=== PATIENT | male | born 1970 | race Caucasian/White ===

== ENCOUNTER 2023-05-06 06:04 | Observation (INO) ==
--- NOTE | 2023-04-15 09:12 | PAT Medication Instructions ---
Medication Instructions Date of Service April 15, 2023 Home Medications aspirin 81 mg tablet,delayed release 81 mg PO QAM cyanocobalamin (vitamin B-12) 2,500 mcg tablet 5,000 mcg PO QAM famotidine 20 mg tablet (Pepcid) 20 mg PO DAILY PRN insulin degludec 100 unit/mL (3 mL) subcutaneous pen (Tresiba FlexTouch U-100 insulin) 130 unit subcut HS lisinopril 10 mg tablet 10 mg PO QAM meloxicam 15 mg tablet 15 mg PO QAM pioglitazone 45 mg tablet 45 mg PO QAM sertraline 50 mg tablet 50 mg PO HS simvastatin 10 mg tablet (Zocor) 10 mg PO HS Continue as directed famotidine 20 mg tablet (Pepcid) 20 mg PO DAILY PRN(if needed) ASK your surgeon for instructions meloxicam 15 mg tablet 15 mg PO QAM ASK your prescriber and surgeon aspirin 81 mg tablet,delayed release 81 mg PO QAM DO NOT take the morning of surgery cyanocobalamin (vitamin B-12) 2,500 mcg tablet 5,000 mcg PO QAM lisinopril 10 mg tablet 10 mg PO QAM pioglitazone 45 mg tablet 45 mg PO QAM Take evening before surgery insulin degludec 100 unit/mL (3 mL) subcutaneous pen (Tresiba FlexTouch U-100 insulin) 130 unit subcut HS sertraline 50 mg tablet 50 mg PO HS simvastatin 10 mg tablet (Zocor) 10 mg PO HS Other Notes NOTHING TO EAT OR DRINK AFTER MIDNIGHT. If you have any questions please call us at [phone] or [phone] or [phone] or [phone]
--- NOTE | 2023-04-16 12:40 | Anesthesiology Consultation ---
Date of Service April 16, 2023 Assessment & Plan (1) Encounter for pre-operative examination: - Check BSG AM DOS - Infectious disease screening: Per assessment on 04/16/23: No known infectious disease contacts or current infectious disease symptoms. No noted recent Covid positive test. Chart Review Chart Review: Acceptable Risk for Surgery and Patient seen in Pre Admission Te sting Teaching & Discussion Pre-Anesthesia Teaching/Discussion Notes: Instructed NPO after midnight before surgery,except medications with 15 cc of water. Medication instructions provided according to the PAT guidelines. History Surgery Operation Date: 05/06/23 11:35 Proposed Procedures p Anterior Cervical Discectomy and Fusion C3-C4 with C5 Corpectomy Spinal Cord Monitoring - Tha Murdock, Height/Weight Height: 5 ft 8 in Weight: 112.9 kg Allergies Allergy/AdvReac Type Severity Reaction Status Date / Time No Known Allergies Allergy Verified 04/15/23 08:31 Medications Home Medications Medication Instructions Recorded Confirmed Last Taken aspirin 81 mg tablet,delayed 81 mg PO QAM 04/15/23 04/15/23 Unknown release cyanocobalamin (vitamin B-12) 5,000 mcg PO QAM 04/15/23 04/15/23 Unknown 2,500 mcg tablet famotidine 20 mg tablet (Pepcid) 20 mg PO DAILY PRN Acid Reflux 04/15/23 04/15/23 Unknown insulin degludec 100 unit/mL (3 130 unit subcut HS 04/15/23 04/15/23 Unknown mL) subcutaneous pen (Tresiba FlexTouch U-100 insulin) lisinopril 10 mg tablet 10 mg PO QAM 04/15/23 04/15/23 Unknown meloxicam 15 mg tablet 15 mg PO QAM 04/15/23 04/15/23 Unknown pioglitazone 45 mg tablet 45 mg PO QAM 04/15/23 04/15/23 Unknown sertraline 50 mg tablet 50 mg PO HS 04/15/23 04/15/23 Unknown simvastatin 10 mg tablet (Zocor) 10 mg PO HS 04/15/23 04/15/23 Unknown Past Medical History Medical History Spinal stenosis Arthritis Acid reflux Anxiety Depression Hypertension Hyperlipidemia Type 2 diabetes mellitus Exercise / Class Metabolic Activity II 4-5 Yardwork/Stairs/Walk up hill Past Family History Family History Mother Diabetes Father Diabetes Sister Diabetes Past Surgical History Surgical History History of anesthesia reaction some short term memory issues after thumb surgery (went into a store right after the surgery and didn't remember it) Hx of thumb surgery left History of tooth extraction Past Anesthesia History No Family Hx of Anesthesia Complications and Other (some short term memory issues after thumb surgery (went into a store right after the surgery and didn't remember it) ) History of PONV No Hx of PONV and No Hx of Motion Sickness Social History Smoking Status: Former smoker Do You Dip or Chew Tobacco: No (Hx, quit 2016) Smoking End Date: Quit 10 years ago Hx Alcohol Use: Yes alcohol intake frequency: holidays/special occasions only Hx Substance Use: No substance use type: does not use Review of Systems Patient denies chest pain, shortness of breath, dyspnea on exertion, fever, chills, cough, wheezing, palpitations. Physical Exam Vital Signs VITALS BP 123/80 P 62 TEMP 98.4 SP02 95%RA RESP 18 PHYSICAL Full cervical extension range of motion. Full TMJ range of motion. TMD 4 finger breaths Mallampati Score 2 Dentition: upper/lower dentures Lungs: clear throughout to auscultation Cardiac: regular rate and rhythm, no murmurs noted Spine: normal Carotid arteries: negative bruit Extremities: no LE edema Short, thick neck Lab Results Anesthesia Preop Results Results Anesthesia Widget: WBC 7.39 K/ul (4.8-10.8) 04/16/23 Hgb 12.9 g/dl (14.0-18.0) L 04/16/23 Hct 38.6 % (42.0-52.0) L 04/16/23 Plt 204 K/uL (130-400) 04/16/23 Na 141 mmol/L (136-145) 04/16/23 K 4.0 mmol/L (3.5-5.1) 04/16/23 Cl 108 mmol/L (98-107) H 04/16/23 CO2 28 mmol/L (21-32) 04/16/23 BUN 25 mg/dl (6-23) H 04/16/23 Creat 0.89 mg/dl (0.6-1.4) 04/16/23 Glucose Level 123 mg/dl (70-99(Fasting)) H 04/16/23 PT 11.5 Seconds (9.0-12.0) 04/16/23 PTT 27 Seconds (21-31) 04/16/23 INR 1.1 (0.9-1.1) 04/16/23 HA1c 6.5 % (4.5-5.6) H 04/16/23 Urine Color Yellow 04/16/23 Urine Appearance Clear (Clear) 04/16/23 Urine pH 6.0 (4.5-7.5) 04/16/23 Urine Specific [place] 1.032 (1.000-1.030) H 04/16/23 Urine Protein Negative (Negative) 04/16/23 Urine Glucose (UA) Negative (Negative) 04/16/23 Urine Ketones Negative (Negative) 04/16/23 Urine Blood Negative (Negative) 04/16/23 Urine Nitrite Negative (Negative) 04/16/23 Urine Bilirubin Negative (Negative) 04/16/23 Urine Urobilinogen Negative (Negative) 04/16/23 Urine Leukocyte Esterase Negative (Negative) 04/16/23 Blood Type O Positive 04/16/23 Antibody Screen NEGATIVE 04/16/23 Testing Electrocardiogram Date: 04/16/23 NSR at 61bpm. "Normal ECG" Chest X-Ray Date: 04/16/23 Findings: + NAD
[~2023-05-06 06:04] MED LIST: ACETAMINOPHEN 500 MG TAB PO SCH; CeleBREX 200 MG CAP PO SCH; GABAPENTIN 900 MG DOSE PO SCH; LR 15ML/HR IV SCH; LR 60ML/HR IV SCH; ceFAZolin 2000MG 2,000 MG/15 ML SYR IV SCH
[2023-05-06] MEDS ORDERED: ONDANSETRON INJ 2 MG/ML 2 ML VIAL IV PRN ×2 (07:06→11:57)
[2023-05-06] MEDS ORDERED: ePHEDrine sulfate 50 MG/ML AMP IV PRN (07:06)
[2023-05-06] MEDS ORDERED: ATROPINE SULFATE 0.1 MG/ML 10ML SYR IV PRN (07:06)
[2023-05-06] MEDS ORDERED: HYDROmorphone INJ 2 MG/ML SYR/VIAL IV PRN (07:06)
[2023-05-06] MEDS ORDERED: fentaNYL citrate PF 100 MCG/2 ML VIAL ONE ×2 (07:13→08:58)
[2023-05-06] MEDS ORDERED: MIDAZOLAM HCL 1 MG/ML 2ML VIAL ONE (07:14)
--- NOTE | 2023-05-06 07:25 | History & Physical Bridge Note ---
Date of Service May 06, 2023 History & Physical Bridge Note I have examined the patient, reviewed the History & Physical and in the interval since the performance of the History & Physical I have noted the following changes of clinical significance: no changes noted
--- NOTE | 2023-05-06 07:26 | History & Physical Report ---
Date of Service May 06, 2023 Assessment & Plan (1) Myelopathy concurrent with and due to spinal stenosis of cervical region: Plan: Anterior cervical discectomy and fusion C3-C4 with C5 corpectomy History of Present Illness Chief Complaint: Neck and arm pain Primary Care Provider: Cody Johansen MD This is a 52-year-old male who presents with chronic persistent neck and arm symptoms after failed course of nonoperative care is here for surgical invention. Allergies Allergy/AdvReac Type Severity Reaction Status Date / Time No Known Allergies Allergy Verified 05/06/23 06:20 Home Medications Medication Instructions Recorded Confirmed Type aspirin 81 mg tablet,delayed 81 mg PO QAM 04/15/23 05/06/23 History release cyanocobalamin (vitamin B-12) 5,000 mcg PO QAM 04/15/23 05/06/23 History 2,500 mcg tablet famotidine 20 mg tablet (Pepcid) 20 mg PO DAILY PRN Acid Reflux 04/15/23 05/06/23 History insulin degludec 100 unit/mL (3 130 unit subcut HS 04/15/23 05/06/23 History mL) subcutaneous pen (Tresiba FlexTouch U-100 insulin) lisinopril 10 mg tablet 10 mg PO QAM 04/15/23 05/06/23 History meloxicam 15 mg tablet 15 mg PO QAM 04/15/23 05/06/23 History pioglitazone 45 mg tablet 45 mg PO QAM 04/15/23 05/06/23 History sertraline 50 mg tablet 50 mg PO HS 04/15/23 05/06/23 History simvastatin 10 mg tablet (Zocor) 10 mg PO HS 04/15/23 05/06/23 History Past Med/Surg History Medical History Spinal stenosis Arthritis Acid reflux Anxiety Depression Hypertension Hyperlipidemia Type 2 diabetes mellitus Surgical History History of anesthesia reaction some short term memory issues after thumb surgery (went into a store right after the surgery and didn't remember it) Hx of thumb surgery left History of tooth extraction Family History Mother Diabetes Father Diabetes Sister Diabetes Social History (Reviewed 05/06/23 @ 06:20 by JORDANA Parisi Smoking Status: Former smoker Smoking End Date: Quit 10 years ago; Second Hand Exposure: No; Do You Dip or Chew Tobacco: No (Hx, quit 2017); Tobacco Cessation Education Requested by Patient: No Hx Alcohol Use: Yes Hx Substance Use: No Preferred Language: Zambian Communication Ability: Effective Station Supervisor Required: No Beliefs That Will Affect Care: None Current Living Situation: Spouse Other Information That Helps Us Care for You: No Feels Safe at Home: Yes Safety Concerns: Feels Safe At This Time Assistive Devices: Denture - Upper, Denture - Lower and Glasses Physical Exam Physical Exam: Patient is alert and oriented Heart regular rhythm Lungs clear Results & Data Results & Data Vital Signs (Past 12 Hours) Vital Signs Temp Pulse Resp BP Pulse Ox O2 Del Method 05/06/23 06:16 36.8 C 64 20 163/95 H 97 Room Air
[2023-05-06] MEDS ORDERED: LIDOCAINE 2% 2 ML VIAL/AMP(20MG/ML) INFIL ONE (07:27)
[2023-05-06] MEDS ORDERED: ONDANSETRON INJ 2 MG/ML 2 ML VIAL ONE (07:27)
[2023-05-06] MEDS ORDERED: PROPOFOL IV EMULSION 10 MG/ML 20 ML VIAL IV ONE (07:27)
[2023-05-06] MEDS ORDERED: ROCURONIUM BROMIDE 10 MG/ML 5 ML VIAL IV ONE (07:27)
[2023-05-06] MEDS ORDERED: DEXAMETHASONE SOD INJ 4 MG/ML VIAL ONE ×2 (07:27→09:52)
[2023-05-06] MEDS ORDERED: DEXTROSE 50% 50 ML SYRINGE IV ONE (07:33)
[2023-05-06] MEDS ORDERED: ceFAZolin 330 MG/ML 1 GM VIAL ONE (07:46)
[2023-05-06] MEDS ORDERED: FLOSEAL HEMOSTATIC MATRIX 10ML TOP ONE (08:31)
[2023-05-06] MEDS ORDERED: ceFAZolin 1000MG 1,000 MG/7.5 ML SYR IV STA (08:36)
[2023-05-06] MEDS ORDERED: diphenhydrAMINE 50 MG/ML VIAL ONE (08:45)
[2023-05-06] MEDS ORDERED: GLYCOPYRROLATE 0.2 MG/ML VIAL ONE (08:45)
[2023-05-06] MEDS ORDERED: SUGAMMADEX SODIUM 200 MG/2 ML VIAL IV ONE (08:56)
[2023-05-06] MEDS ORDERED: PHENYLEPHRINE 100MCG/ML 10ML SYR IV ONE (09:53)
--- NOTE | 2023-05-06 10:04 | Operative Report ---
Post Operative Report Pre & Post Diagnosis Operation Date: 05/06/23 07:45 Pre-Op Diagnosis: Stenosis of Cervical Spine with Myelopathy Post-Op Diagnosis: Stenosis of Cervical Spine with Myelopathy I identified the patient and participated in the time-out.: Yes Procedure Operation Date: 05/06/23 07:45 Actual Procedures #1 anterior cervical corpectomy of C5 with bilateral foraminotomies. #2 anterior cervical discectomy C3-C4 with bilateral foraminotomies. #3 anterior cervical arthrodesis C3-C4 and C4-C6. #4 placement of peek 7 mm cage at C3-C4 and 23 mm cage at C4-C6. #5 placement locally harvested morselized autograft combined with I factor in the interbody cages. #6 application of K2 M plate and screws from C3-C6 Surgeon Tha Murdock, Secretarial Stenographer None Estimated Blood Loss 10 Findings See Below The patient is 5 foot 8 weighing over 112 kg with a BMI in excess of 37. Patient's body habitus did contribute to significant difficulty with positioning exposure adding at least 50% increased operative time. Specimens None Indications This is a 52-year-old male who presents with gross cervical myelopathy and is here for surgical invention. Description of Procedure Patient was met with identified informed consent obtained. Patient was then taken to the operative suite underwent patient placed supine position on the Chad table head Reza faculty head. All bony promises well-padded eyes inspected to ensure no external pressure placed upon the. This point the anterior cervical spine was prepped prepped and draped normal sterile fashion. With the assistance of fluoroscopy identified the C4 vertebral body transverse incision was placed along the right anterior aspect of the cervical spine overlying the region. Blunt dissection with assistance of bipolar electrocautery was performed down to expose the anterior cervical spine from C3- C6. I then performed a complete discectomy of C4-C5 to the uncovertebral notch bilaterally followed by C5-C6. Sidell distraction pins were then placed in C4 and C6 to distract across the C5 vertebral body. A complete corpectomy was then performed, removal of all posterior annular fibers longitudinal ligament bilateral foraminotomies were performed. Endplates were then burred to subcort ical bleeding bone at 23 mm peek cage filled locally harvested morselized autograft and I factor tapped in position. Then proceeded at C3-C4 and again complete discectomy performedbilaterally. Sidell distraction pins again utilized. Removed all posterior annular fibers longitudinal ligament bilateral foraminotomies performed for complete decompression. Endplates were then burred to subcortical and bone and 7 mm peek cage filled with I factor and locally harvested morselized autograft tapped in position. Distracting apparatus was removed and all anterior osteophytes. To a smooth cortical surface and a K2 M plate and screws applied with the assistance of fluoroscopy. Incision was then copiously irrigated explored to ensure no damage to surrounding structures remaining bleeding. 10 round DINA drain inserted. The incision was then closed with 2 Vicryl in the fascia and 4 Monocryl for fascial closure. Steri-Strips sterile dressing placed. Patient was then taken to PACU in stable condition. Please note spinal cord monitoring visualized at the procedure no changes noted. I attest to the content of the Intraoperative Record and any orders documented therein. Any exceptions are noted below.
--- NOTE | 2023-05-06 10:18 | Fluoroscopy Report ---
FL cervical 2-3V CLINICAL HISTORY: ACDF C3-C4 WITH C5 CORPECTOMY COMPARISON STUDY: None FLUOROSCOPY TIME: 15.1 seconds FLUOROSCOPY IMAGES: 2 EXPOSURE DOSE: 2.63 mGy FINDINGS: 4 level anterior plate and screw fusion hardware noted at what appears to be the C3-C6 leve ls with reported C5 corpectomy. Discectomy changes are noted at the C3-C4 level. The hardware appears intact. Endotracheal tube is present with surgical drainage catheter. Note that the images were subm itted following completion of the surgery. IMPRESSION: Fluoroscopic assistance as above. ACT 112: Negative or not required by law. Electronically signed by: Jhon Celeste M.D. 05/06/2023 10:16 AM
[2023-05-06] MEDS: fentaNYL citrate PF 100 MCG/2 ML VIAL IV PRN ×2 (10:30→10:43)
--- NOTE | 2023-05-06 11:35 | Anesthesiology Progress Note ---
Date of Service May 06, 2023 Anesthesia Post Procedure Vital Signs Vital Signs: Temp Pulse Pulse Resp BP Pulse Ox O2 Del Method 05/06/23 11:20 37.0 C 77 14 133/90 93 Nasal Cannula 05/06/23 11:10 71 12 115/78 92 Oxymask 05/06/23 11:00 73 16 126/84 93 Oxymask 05/06/23 10:50 72 12 134/86 93 Oxymask 05/06/23 10:40 80 20 152/101 H 93 Oxymask 05/06/23 10:30 71 17 133/93 94 Oxymask 05/06/23 10:25 83 20 133/96 96 Oxymask 05/06/23 10:19 36.0 C L 80 16 142/99 H 96 Oxymask 05/06/23 06:16 36.8 C 64 20 163/95 H 97 Room Air O2 Flow Rate 05/06/23 11:20 3 05/06/23 11:10 4 05/06/23 11:00 4 05/06/23 10:50 6 05/06/23 10:40 6 05/06/23 10:30 6 05/06/23 10:25 6 05/06/23 10:19 6 05/06/23 06:16 Pain Intensity Lower Neck: Pain Intensity: 5 Transfer of Care Handoff Completed per policy Notes Mental Status: alert / awake / arousable and participated in evaluation Patient Amnestic to Procedure: Yes Nausea / Vomiting: adequately controlled Pain: adequately controlled Airway Patency, RR, SpO2: stable & adequate BP & HR: stable & adequate Hydration State: stable & adequate Anesthetic Complications: no major complications apparent and Pt Satisfied with anesthetic care
[2023-05-06] MEDS ORDERED: dexAMETHasone 8 MG in SYRINGE 0 ML IV PRN (11:57)
[2023-05-06] MEDS ORDERED: SOD PHOSPHATE/SOD BIPHOSPHATE ENEMA 132 ML BTL PR PRN (11:57)
[2023-05-06] MEDS ORDERED: RACEPINEPHRINE 2.25% NEBU SOLN 0.5 ML VIAL INH PRN (11:57)
[2023-05-06] MEDS ORDERED: PHARMACY GLYCEMIC MGMT CONSULT PRN (11:57)
[2023-05-06] MEDS ORDERED: hydrOXYzine HCl 25 MG TAB PO PRN (11:57)
[2023-05-06] MEDS ORDERED: METOCLOPRAMIDE HCL INJ 5 MG/ML 2 ML VIAL IV PRN (11:57)
[2023-05-06] MEDS ORDERED: LORazepam 0.5 MG TAB PO PRN (11:57)
[2023-05-06] MEDS ORDERED: ACETAMINOPHEN 500 MG TAB PO PRN (11:57)
[2023-05-06] MEDS ORDERED: bisacodyL 10 MG SUPP PR PRN (11:57)
[2023-05-06] MEDS ORDERED: NALOXONE HCL 0.4 MG/1 ML VIAL/CARP IV PRN (11:57)
[2023-05-06] MEDS ORDERED: LORazepam 0.5 MG in SYRINGE 0.25 ML IV PRN (11:57)
[2023-05-06] MEDS ORDERED: ACETAMINOPHEN 1,000 MG/100 ML VIAL IV PRN (11:57)
[2023-05-06] MEDS ORDERED: diphenhydrAMINE Capsule 25 MG CAP PO PRN (11:57)
[2023-05-06] MEDS ORDERED: HYDROmorphone INJ 0.5 MG/0.5 ML SYR IV PRN (11:57)
[2023-05-06] MEDS ORDERED: PROMETHAZINE HCL 12.5 MG in SODIUM CHLORIDE 0.9% 50 ML IV PRN (11:57)
[2023-05-06] MEDS ORDERED: ONDANSETRON 4 MG OD TAB PO PRN (11:57)
[2023-05-06] MEDS ORDERED: MAGNESIUM HYDROXIDE SUSP 30 ML UDC PO PRN (11:57)
[2023-05-06] MEDS ORDERED: DO NOT ADMINISTER FLU VACCINE PRN (11:57)
[2023-05-06] MEDS ORDERED: DO NOT ADMINISTER PNEUMOCOCCAL VACCINE PRN (11:57)
[2023-05-06] MEDS ORDERED: FAMOTIDINE 20 MG TAB PO PRN ×2 (11:57)
[2023-05-06] MEDS ORDERED: traMADol HCL 50 MG TABLET PO PRN (11:57)
[2023-05-06] MEDS ORDERED: HYDROmorphone INJ 1 MG/ML SYRINGE IV PRN (11:57)
[2023-05-06] MEDS ORDERED: ALUMINUM/MAGNESIUM SUSP 30 ML UDC PO PRN (11:57)
[2023-05-06] MEDS: SODIUM CHLORIDE 0.9% 1,000 ML IV SCH ×3 (12:46→23:10)
--- NOTE | 2023-05-06 12:52 | Hospitalist Consultation ---
Date of Consultation May 06, 2023 Assessment & Plan (1) Myelopathy concurrent with and due to spinal stenosis of cervical region: - Postop day #0, C3/C4 discectomy and fusion, C5 corpectomy by Dr. Murdock - Pain management, bowel regimen and DVT ppx per the primary team - PT/OT consults - Follow am CBC to monitor for acute blood loss, last Hgb was 12.9 on 04/16/23, trend am labs (2) Type 2 diabetes mellitus: - Cont on pioglitazone 45 mg QAM per primary team - ISS with accucheckrobert achs - Taking Tresiba 130 units at HS -- primary team has consulted glycemic pharmacy, last evening took 97 units due to being n.p.o. at midnight per fianc sitting at bedside, glucose this morning was 80. Monitor. Consider reduce Tresiba this evening again pending glucoses this afternoon and oral intake. -A1c 6.5 on 04/16/2023 (3) Hyperlipidemia: - Cont simvastatin - Chronic, stable (4) Hypertension: -Chronic, stable, BP 149/93 presently, monitor. - Connt Antihypertensives with lisinopril - baby aspirin - can discuss with PCP after discharge if pt should continue this medication or not as te started it for possible stroke sx with numbness/right hand weakness which is why he has underwent cervical surgery, likely that this can be discontinued. (5) Acid reflux: - Chronic, stable continue famotidine as needed (6) Anxiety: (7) Depression: -Chronic, stable continue on sertraline 50 mg at bedtime DVT ppx: teds, scds GI/FEN: DM diet Lines: 2 PIV CODE: Full code- discussed with pt and family present at bedside Dispo: From home, likely to remain in the hospital x 1-2 days Thank you for involving us in the care of Mr. Pickens. If you have any questions or concerns please do not hesitate to call. At this time medicine will sign off. Supervising Physician Co-Signing Physician Notes I have seen and discussed the case with the collaborating LYNN. I agree with the above H&P. I have reviewed and confirmed the patients medical history, the findings on physical examination, and the patients diagnosis and treatment plan with Lory BAILEY and agree with the information documented. In short, Mr. Pickens is a 52 year old gentleman with DMT2, HTN, HLD who is admitted for postop day #0, C3/C4 discectomy and fusion, C5 corpectomy by Dr. Murdock. Medicine consulted for co management. Plan for glycemic consult, resume home medications, monitor for post-op anemia. Rest of plan as above History of Present Illness Reason for Consultation: Post op med management Requesting Physician: Dr. Murdock Attending Physician: Tha Murdock, DO History of Present Illness This is a 52 yo M with PMHx of DM II, GERD, HTN, HLD, Depression, Anxiety, myelopathy, spinal stenosis of cervical region who presented for anterior cervical discectomy and fusion C3 with C3-4 and C[address] Murdock on 05/06/2023. Patient is present with his fiance, sister, daughter, and friend present at bedside. He reports that he is still slightly sleep from surgical procedure. He reports having some right arm numbness and pain which is similar to before his surgical procedure. He has tolerated clear liquids without any difficulty. Patient reports last bowel movement was yesterday. Typically he does not use any supplemental O2 but it is placed after surgery on 2 LPM NC. Denies any shortness of breath, chest pain. He has some mild pain in his neck but intermittently is falling asleep. Appears to be comfortable. Eric notes that she doses his Tresiba at home, last evening gave 97 units due to being n.p.o. at midnight. His sugar this morning was 79. Normally he takes 130 units at bedtime. She also notes that he is on a baby aspirin as initially when his symptoms started there was concern that he had a stroke versus nerve impingement in the neck. To her knowledge there is no proven indication that he had a stroke. Discussed that she can follow-up with his PCP regarding if he should remain on baby aspirin. Allergies Allergy/AdvReac Type Severity Reaction Status Date / Time No Known Allergies Allergy Verified 05/06/23 06:20 Home Medications Medication Instructions Recorded Confirmed Type aspirin 81 mg tablet,delayed 81 mg PO QAM 04/15/23 05/06/23 History release cyanocobalamin (vitamin B-12) 5,000 mcg PO QAM 04/15/23 05/06/23 History 2,500 mcg tablet famotidine 20 mg tablet (Pepcid) 20 mg PO DAILY PRN Acid Reflux 04/15/23 05/06/23 History insulin degludec 100 unit/mL (3 130 unit subcut HS 04/15/23 05/06/23 History mL) subcutaneous pen (Tresiba FlexTouch U-100 insulin) lisinopril 10 mg tablet 10 mg PO QAM 04/15/23 05/06/23 History meloxicam 15 mg tablet 15 mg PO QAM 04/15/23 05/06/23 History pioglitazone 45 mg tablet 45 mg PO QAM 04/15/23 05/06/23 History sertraline 50 mg tablet 50 mg PO HS 04/15/23 05/06/23 History simvastatin 10 mg tablet (Zocor) 10 mg PO HS 04/15/23 05/06/23 History oxycodone 5 mg tablet 5 mg PO Q6H PRN pain #30 tabs 05/06/23 05/06/23 Rx tramadol 50 mg tablet 50 mg PO Q6H PRN pain, moderate #2 05/06/23 05/06/23 Rx tabs Patient History Medical History (Updated 05/06/23 @ 12:56 by Jael Henley PA-C) Anxiety Type 2 diabetes mellitus Spinal stenosis Arthritis Acid reflux Depression Hypertension Hyperlipidemia Surgical History History of anesthesia reaction some short term memory issues after thumb surgery (went into a store right after the surgery and didn't remember it) Hx of thumb surgery left History of tooth extraction Family History Mother Diabetes Father Diabetes Sister Diabetes Social History Smoking Status: Former smoker Smoking End Date: Quit 10 years ago; Second Hand Exposure: No; Do You Dip or Chew Tobacco: No (Hx, quit 2017); Tobacco Cessation Education Requested by Patient: No Hx Alcohol Use: Yes Hx Substance Use: No Preferred Language: Gambian Communication Ability: Effective Affiliate Marketing Specialist Required: No Beliefs That Will Affect Care: None Current Living Situation: Spouse Other Information That Helps Us Care for You: No Feels Safe at Home: Yes Safety Concerns: Feels Safe At This Time Assistive Devices: Denture - Upper, Denture - Lower and Glasses Review of Systems Review of Systems: Constitutional: No fever, sweats or chills Eyes: No diplopia, no worsening or blurred vision ENT: normal hearing, no trouble swallowing, + mild neck pain as per HPI Respiratory: No cough, sputum, dyspnea at rest or on exertion Cardiovascular: No chest pain, tightness or palpitations Abdomen: No pain, nausea, vomiting, diarrhea or constipation, last bowel movement yesterday Musculoskeletal: No joint pain, calf pain, swelling Neurologic: No weakness, numbness/tingling, or balance problems Psychiatric: No anxiety or depression Skin: No rash or itch Physical Exam Physical Exam: General: awake, alert, no apparent distress, obese with BMI 37.7, white male Head: Normocephalic, atraumatic ENT: PERRL, EOMI, no pharyngeal exudate, mucous membranes moist, neck dressing is C/D/I, DINA drain in place serosanguineous bloody outs Chest: Clear to auscultation, on room air, no adventitious breath sounds Cardiac: Regular rate and rhythm, no murmur, no JVD, normal peripheral pulses, good capillary refill Abdominal: NABS x 4 quadrants, soft, nondistended, nontender to palpation, no rebound or guarding Extremities: Normal inspection, no peripheral edema or erythema, calfs nontender to palpation, + numbness of the right upper extremity, sensation to light touch is intact, patient can move all extremity without difficulty. Psych: Normal mood and affect Neuro: AAO x 3, strength intact bilaterally and rated 5/5, no motor deficits, sp eech is clear Results & Data Results & Data Vital Signs (Past 12 Hours) Vital Signs Temp Pulse Pulse Pulse Resp BP Pulse Ox 05/06/23 12:16 36.7 C 79 18 146/90 H 94 05/06/23 12:11 79 17 95 05/06/23 11:48 36.6 C 80 18 146/89 H 93 05/06/23 11:30 74 15 129/88 93 05/06/23 11:20 37.0 C 77 14 133/90 93 05/06/23 11:10 71 12 115/78 92 05/06/23 11:00 73 16 126/84 93 05/06/23 10:50 72 12 134/86 93 05/06/23 10:40 80 20 152/101 H 93 05/06/23 10:30 71 17 133/93 94 05/06/23 10:25 83 20 133/96 96 05/06/23 10:19 36.0 C L 80 16 142/99 H 96 05/06/23 06:16 36.8 C 64 20 163/95 H 97 O2 Del Method O2 Flow Rate 05/06/23 12:16 Nasal Cannula 2 05/06/23 12:11 Nasal Cannula 2 05/06/23 11:48 Nasal Cannula 3 05/06/23 11:30 Nasal Cannula 3 05/06/23 11:20 Nasal Cannula 3 05/06/23 11:10 Oxymask 4 05/06/23 11:00 Oxymask 4 05/06/23 10:50 Oxymask 6 05/06/23 10:40 Oxymask 6 05/06/23 10:30 Oxymask 6 05/06/23 10:25 Oxymask 6 05/06/23 10:19 Oxymask 6 05/06/23 06:16 Room Air Laboratory Results 05/06/23 05/06/23 05/06/23 11:58 10:21 06:21 POC Glucose 115 H 96 76 Diagnostic Findings Cervical Spine X-Ray 05/06/23 07:45 FL cervical 2-3V CLINICAL HISTORY: ACDF C3-C4 WITH C5 CORPECTOMY COMPARISON STUDY: None FLUOROSCOPY TIME: 15.1 seconds FLUOROSCOPY IMAGES: 2 EXPOSURE DOSE: 2.63 mGy FINDINGS: 4 level anterior plate and screw fusion hardware noted at what appears to be the C3-C6 levels with reported C5 corpectomy. Discectomy changes are noted at the C3-C4 level. The hardware appears intact. Endotracheal tube is present with surgical drainage catheter. Note that the images were submitted following completion of the surgery. IMPRESSION: Fluoroscopic assistance as above. ACT 112: Negative or not required by law. Electronically signed by: Jhon Celeste M.D. 05/06/2023 10:16 AM
[2023-05-06] MEDS ORDERED: LANTUS PER UNIT CHARGE SC ONE ×2 (13:15→21:00)
[2023-05-06] MEDS ORDERED: CARBOHYDRATES FOR HYPOGLYCEMIA PO PRN (13:15)
[2023-05-06] MEDS ORDERED: GLUCOSE 40% GEL 15 GM TUBE PO PRN (13:15)
[2023-05-06] MEDS ORDERED: GLUCOSE 10 TAB/TUBE PO PRN (13:15)
[2023-05-06] MEDS ORDERED: DEXTROSE 50% 50 ML SYRINGE IV PRN (13:15)
[2023-05-06] MEDS ORDERED: GLUCAGON FOR INJ 1 MG VIAL IM PRN (13:15)
[2023-05-06] MEDS: INSULIN ASPART PER UNIT CHARGE SC SCH ×3 (13:57→20:57)
--- NOTE | 2023-05-06 14:03 | Pharmacy Report ---
Pharmacy Glycemic Short Note 2 - Date of Service May 06, 2023 - Glycemic Short BSG Results (Last 24 hours): 05/06/23 05/06/23 05/06/23 06:21 10:21 11:58 POC Glucose 76 96 115 H 05/06/23 13:38 POC Glucose 123 H OUTPATIENT ANTIDIABETIC REGIMEN: * Tresiba (prescribed 130 units SC HS, but doesn't take if BSG below 120 and takes about half if above 130 mg/dL) * Reportedly took 95 units SC last evening * Pioglitazone 45 mg PO qAM HbA1c: 6.5% (04/26/23) ASSESSMENT: * RM is a 52 year old male POD #0 s/p discectomy/fusion * Received 4 mg IV dexamethasone in OR and is ordered 6 mg IV q8h x 3 doses * Preop BSG of 76 mg/dL and postop BSG of 115 mg/dL * Will utilize aggressive weight-based Novolog parameters * Given large range in reported outpatient basal, will be conservative with initial dose and allow for more this evening if needed PLAN FOR INPATIENT GLYCEMIC CONTROL: * Hold outpatient oral diabetes medications * Basal insulin * Lantus 40 units SC x 1 postoperatively * Lantus HS 0-40 units SC HS * Bolus insulin * NovoLog per scale ACHS or Q6hrs while NPO * Goal Range: Low 110 mg/dL - High 140 mg/dL * Correction Factor: 15 mg/dL/unit * Nutritional / Prandial insulin per carb ratio of 1 unit per 5 grams CHO consumed * ,04 checks with same parameters
[2023-05-06] MEDS: dexAMETHasone 6 MG in SYRINGE 0 ML IV SCH ×2 (14:36→21:51)
[2023-05-06] MEDS: oxyCODONE HCL IR 5 MG TAB (IMMEDIATE RELEASE) PO PRN ×2 (14:38→23:48)
[2023-05-06] MEDS ORDERED: COUGH DROP (SUGAR FREE) LOZ 24 LOZ/1 BOX BUCCAL PRN (19:26)
[2023-05-06] MEDS ORDERED: DOCUSATE SODIUM/SENNA 50/8.6MG TAB PO SCH (21:00)
[2023-05-06] MEDS ORDERED: SERTRALINE HCL 50 MG TABLET PO SCH (21:00)
[2023-05-06] MEDS ORDERED: SIMVASTATIN 10 MG TAB PO SCH (21:00)
[2023-05-07] MEDS: INSULIN ASPART PER UNIT CHARGE SC SCH ×4 (00:17→12:00)
[2023-05-07] MEDS: POLYETHYLENE (MIRALAX) 17 GM PACK PO SCH ×2 (05:28→11:43)
[2023-05-07] MEDS: dexAMETHasone 6 MG in SYRINGE 0 ML IV SCH (05:28)
[2023-05-07] MEDS ORDERED: ASPIRIN 81 MG ECTAB PO SCH (09:00)
[2023-05-07] MEDS ORDERED: NON-FORMULARY MEDICATION (Pioglitazone 45 mg Tablet) PO SCH (09:00)
[2023-05-07] MEDS ORDERED: lisinopril 10 MG TAB PO SCH (09:00)
[2023-05-07] MEDS ORDERED: CYANOCOBALAMIN (B-12) 2,500 MCG TABLET PO SCH (09:00)
[2023-05-07] MEDS ORDERED: LANTUS PER UNIT CHARGE SC SCH (09:00)
--- NOTE | 2023-05-07 09:57 | Orthopedic Progress Note ---
Date of Service May 07, 2023 Assessment & Plan (1) Myelopathy concurrent with and due to spinal stenosis of cervical region: Plan: This time the patient's DINA drain is decreasing appropriately. We are discussing discharge home today. He will require a hospital bed at home. This would allow him to sit upright to protect his airway after his large cervical reconstruction. Also allow him to adequately wear his cervical collar in appropriate position. Admission and Anticipated Discharge Date Admission Date: May 06, 2023 Subjective Patient swallowing well. No hoarseness. He is noting improvement in the tingling in his arms. He still notes weakness to the right shoulder. No radicular pain. Physical Exam Physical Exam: Patient has good grasp bilaterally. There are some deficits to the right deltoid compared to the left. Sensory is intact. Results & Data Vital Signs (Past 12 Hours) Vital Signs Temp Pulse Resp BP Pulse Ox O2 Del Method O2 Flow Rate 05/07/23 09:12 36.5 C 84 18 162/92 H 92 Nasal Cannula 1 05/07/23 07:06 36.7 C 80 18 165/100 H 93 Nasal Cannula 1 05/07/23 05:57 85 18 95 Nasal Cannula 2 05/07/23 05:19 36.6 C 72 20 136/74 94 Nasal Cannula 3 05/07/23 03:15 36.7 C 78 18 146/76 H 93 Nasal Cannula 3 05/07/23 02:41 70 18 92 Nasal Cannula 2 05/07/23 01:24 36.4 C L 75 18 149/84 H 95 Nasal Cannula 3 05/06/23 23:41 36.6 C 80 16 134/83 94 Nasal Cannula 3 05/06/23 22:23 81 18 94 Nasal Cannula 2
--- NOTE | 2023-05-07 09:58 | Discharge Summary ---
Date of Service May 07, 2023 Admission HPI Per Admitting Provider This is a 52-year-old male who presents with chronic persistent neck and arm symptoms after failed course of nonoperative care is here for surgical invention. Principal Diagnosis Cervical spinal stenosis with myelopathy Discharge Data Allergies Allergy/AdvReac Type Severity Reaction Status Date / Time No Known Allergies Allergy Verified 05/06/23 06:20 Consultations 05/06/23 11:57 Consult Hospitalist Routine Procedures Performed Operation Date: 05/06/23 07:45 Actual Procedures p Anterior Cervical Discectomy and Fusion C3-C4 with C5 Corpectomy Spinal Cord Monitoring(Not Applicable) - Tha Murdock DO Ordered Studies 05/06/23 07:45 FL cervical 2-3V Routine Hospital Course (1) Myelopathy concurrent with and due to spinal stenosis of cervical region: Patient went anterior cervical corpectomy ACDF and fusion trial as well as taken orthopedic for postoperative postop day 1 and swallowing well. No hoarseness. No radicular pain. DINA drain decreasing probably. Subsequently we are planning for discharge home subsequently planning for discharge home. Discharge orders instructions found in chart for further review. Total Time Total Time Spent Total Time Spent (In Minutes): 20 minutes Discharge Plan Discharge Items Patient Disposition: Home - Home Health Services Reason For Visit: postop Discharge Diagnosis: Cervical spinal stenosis with myelopathy Activity: As commented below Non-emergency contact: Primary Care Provider Call non-emergency contact if: you have any medication questions Follow-up/Referrals: PCP,NO [Physician] - Diet: Regular Addtl Attending Provider Instructions: ACTIVITY RECOMMENDATIONS: SELF CARE INSTRUCTIONS AFTER CERVICAL FUSIONS 1. No smoking. Smoking drastically decreases the chance of a solid fusion. 2. No bending, lifting more than 5 pounds, or twisting (roll like a log when turning in bed). 3. You may shower 3 days after surgery. Thoroughly dry wound. Do not soak in the tub. 4. Cervical collar: Must be worn at all times including sleeping. You may remove the brace only to bath, eat and if you are sitting in a recliner. 5. Please walk as much as you can for exercise. Gradually increase the distance that you walk as your endurance increases. SPECIAL CARE INSTRUCTIONS: VERY IMPORTANT TO READ AND REVIEW A. Do not take any anti-inflammatory medications (i.e. Indocin, Advil, Aspirin, Naprosyn, Aleve, Motrin, etc.) as these may inhibit the chance of a solid fusion. Tylenol is okay to take. B. Your surgical incision has been closed with a cosmetic suture under the skin that will dissolve in about 6 weeks. In 14 days, you can use a pair of clean scissors and cut the suture that is left outside of the skin at the ends of your incision. C. Complications are uncommon, but please contact us if you have any signs or symptoms of: 1. wound infection (fever higher than 102.5 degrees F, redness, separation of wound, drainage, or increasing pain from the incision) 2. blood clots in legs (pain, swelling, redness and warmth in legs) 3. urinary tract infection (fever higher than 102.5 degrees, burning upon urination or increased frequency of urination) 4. nerve problems (inability to walk on your toes or heels, numbness, loss of bowel or bladder control) 5. any other symptoms that concern you. D. Please call the office at if you have any concerns or questions about your operation or recovery. MANAGING PAIN AFTER SPINAL SURGERY 1. Narcotic medication is intended for short-term use and will be provided for surgical pain. Surgical pain usually lasts for a period of 4-6 weeks. Narcotic medication includes Percocet, Vicodin, Darvocet, Tylenol #3 or Lortab. 2. Longer-term pain is more appropriately treated with non-narcotic medication such as Tylenol ES. 3. Muscle spasm is not appropriately treated with narcotics. Muscle relaxers such as Soma, Flexeril or Skelaxin can be used along with Tylenol ES. 4. Remember that we all live with some "aches and pains". This is not unusual or uncommon after an injury or as we get older. 5. We will provide appropriate medication within the normal guidelines of their prescribed use. We will also be very cautious and aware of potential abuse and extended duration of patients' medication needs. 6. Please allow 2-3 days to process refills. Prescriptions will not be mailed but must be picked up at the office. FOLLOW UP VISIT: Keep your scheduled follow-up appointment. Any questions, please call the office at . Pending Studies at Discharge: No Stand-Alone Forms: [employer], Smoking Cessation Medications and DC Order Prescriptions: New tramadol 50 mg tablet 50 mg PO Q6H PRN (Reason: pain, moderate) Qty: 2 0RF oxycodone 5 mg tablet 5 mg PO Q6H PRN (Reason: pain) Qty: 30 0RF Continued meloxicam 15 mg Tablet 15 mg PO QAM simvastatin [Zocor] 10 mg Tablet 10 mg PO HS pioglitazone 45 mg Tablet 45 mg PO QAM aspirin 81 mg Tablet,Delayed Release (Dr/Ec) 81 mg PO QAM lisinopril 10 mg Tablet 10 mg PO QAM sertraline 50 mg Tablet 50 mg PO HS insulin degludec [Tresiba FlexTouch U-100] 100 unit/mL (3 mL) Insulin Pen 130 unit SUBCUT HS Patient Comments: prescribed 130 at hs, but pt monitors sugars and if 120 or less, does not take, if above 130, does about half the dose "approx", per pt, PCP is aware and okay with this due to A1c is coming down. cyanocobalamin (vitamin B-12) 2,500 mcg Tablet 5,000 mcg PO QAM famotidine [Pepcid] 20 mg Tablet 20 mg PO DAILY PRN (Reason: Acid Reflux) Admission Data Admit Date/Time: 05/06/23 10:08 Attending Provider: Tha Murdock Admit Provider: Tha Murdock Primary Care Provider: Cody Johansen. Other Providers: Cyndi Murillo; Jerilyn York
[2023-05-07 11:21] LABS: Hematocrit (blood only) 40.9 % (42.0-52.0); Hemoglobin 13.6 g/dl (14.0-18.0); Mean Corpuscular Hemoglobin 31.1 pg (25.0-34.0); Mean Corpuscular Hgb Conc 33.3 g/dL (32.0-36.0); Mean Corpuscular Volume 93.6 fL (80.0-100.0); Mean Platelet Volume 11.4 fL (9.4-12.4); Platelet Count 242 K/uL (130-400); RDW Coefficient of Variation 12.7 % (11.5-14.5); RDW Standard Deviation 43.7 fL (36.4-46.3); Red Blood Count 4.37 M/uL (4.70-6.10); White Blood Count 18.32 K/ul (4.8-10.8)
[2023-05-07 11:31] LABS: BUN Creatinine Ratio 17.6 (10-20); Calcium 9.6 mg/dl (8.6-10.3); Est GFR (African American) 122.9 ml/min; Est GFR (Non-African American) 106.1 ml/min; Magnesium 1.9 mg/dl (1.7-2.4); Phosphorus 2.3 mg/dl (2.5-4.9); Potassium 4.1 mmol/L (3.5-5.1)
[2023-05-07] MEDS: oxyCODONE HCL IR 5 MG TAB (IMMEDIATE RELEASE) PO PRN (11:42)
[2023-05-07 11:44] LABS: Basophils # (auto) 0.03 K/uL (0.00-0.20); Basophils % (auto) 0.2 %; Eosinophils # (auto) 0.01 K/uL (0.00-0.50); Eosinophils % (auto) 0.1 %; Immature Granulocytes # (auto) 0.09 K/uL (0.01-0.20); Immature Granulocytes % (auto) 0.5 %; Lymphocytes # (auto) 0.63 K/uL (1.20-3.40); Lymphocytes % (auto) 3.4 %; Monocytes # (auto) 0.48 K/uL (0.11-0.59); Monocytes % (auto) 2.6 %; Neutrophils # (auto) 17.08 K/uL (1.40-6.50); Neutrophils % (auto) 93.2 %
[2023-05-07 11:48] VITALS: BP 152/84; PULSE 80; RESP 16; TEMP 98.2; O2SAT 93
[2023-05-07] MEDS ORDERED: POTASSIUM PHOS 3 MMOL/1 ML INFUSION IV STA (14:03)
--- NOTE | 2023-05-07 14:20 | Hospitalist Progress Note ---
Date of Service May 07, 2023 Assessment & Plan (1) Myelopathy concurrent with and due to spinal stenosis of cervical region: Plan: - Postop day #1, C3/C4 discectomy and fusion, C5 corpectomy by Dr[address] Murdock - Pain management, bowel regimen and DVT ppx per the primary team - PT/OT consult - Follow am CBC to monitor for acute blood loss, last Hgb was 12.9 on 04/16/23, up to 13.6 today (2) Type 2 diabetes mellitus: Plan: - Cont on pioglitazone 45 mg QAM per primary team - ISS with accuchecks achs - Taking Tresiba 130 units at HS Glycemic consult -A1c 6.5 on 04/16/2023 (3) Hyperlipidemia: Plan: - Cont simvastatin - Chronic, stable (4) Hypertension: Plan: -Chronic, stable, BP 149/93 presently, monitor. - Cont Antihypertensives with lisinopril - cont baby aspirin (5) Acid reflux: Plan: - Chronic, stable continue famotidine as needed (6) Anxiety: (7) Depression: Plan: -Chronic, stable continue on sertraline 50 mg at bedtime DVT ppx: teds, scds GI/FEN: DM diet CODE: Full code- discussed with pt and family present at bedside Admission and Anticipated Discharge Date Admission Date: May 06, 2023 Subjective Pt was seen in the AM. Sitting in chair at bedside. Notes that he had some pain, neck brace on. Review of Systems Review of Systems: All systems reviewed & are unremarkable except as noted in Subjective Physical Exam Physical Exam: General: Alert, oriented. No acute distress Skin: No noted rashes or bruises Psych: Appropriate mood and affect Neuro: slow neck movements HEENT: NC/AT, neck brace on CV: RRR Resp: Breath sounds clear bilaterally, no increased effort of breathing. Abdomen:Soft, nontender, nondistended. Extremities: No edema in lower extremities bilaterally. Results & Data Results & Data Vital Signs (Past 12 Hours) Vital Signs Temp Pulse Resp BP Pulse Ox O2 Del Method O2 Flow Rate 05/07/23 11:47 36.8 C 80 16 152/84 H 93 Room Air 05/07/23 09:12 36.5 C 84 18 162/92 H 92 Nasal Cannula 1 05/07/23 07:20 Room Air 05/07/23 07:06 36.7 C 80 18 165/100 H 93 Nasal Cannula 1 05/07/23 05:57 85 18 95 Nasal Cannula 2 05/07/23 05:19 36.6 C 72 20 136/74 94 Nasal Cannula 3 05/07/23 03:15 36.7 C 78 18 146/76 H 93 Nasal Cannula 3 05/07/23 02:41 70 18 92 Nasal Cannula 2
[2023-05-07] MEDS ORDERED: POTASSIUM PHOSPHATE 21 MMOL in SODIUM CHLORIDE 0.9% 500 ML IV ONE (14:30)
[2023-05-07] MEDS ORDERED: LANTUS PER UNIT CHARGE SC ONE (21:00)
== END 2023-05-07 14:09 | disposition home health service (06) ==
LOC: ASU 06:04 → 3E 06:04
DX: Z79.899 Other long term (current) drug therapy; M48.02 Spinal stenosis, cervical region; K21.9 Gastro-esophageal reflux disease without esophagitis; F41.9 Anxiety disorder, unspecified; G99.2 Myelopathy in diseases classified elsewhere; Z79.82 Long term (current) use of aspirin; E78.5 Hyperlipidemia, unspecified; Z79.1 Long term (current) use of non-steroidal anti-inflammatories (NSAID); Z79.4 Long term (current) use of insulin; E11.9 Type 2 diabetes mellitus without complications; Z87.891 Personal history of nicotine dependence; I10 Essential (primary) hypertension; F32.A Depression, unspecified; E66.9 Obesity, unspecified; Z68.37 Body mass index [BMI] 37.0-37.9, adult

== ENCOUNTER 2025-04-22 06:15 | Inpatient (IN) ==
--- NOTE | 2025-01-20 14:17 | PAT Medication Instructions ---
Medication Instructions Date of Service January 20, 2025 Home Medications cyanocobalamin (vitamin B-12) 2,500 mcg tablet 5,000 mcg PO QAM famotidine 20 mg tablet (Pepcid) 20 mg PO BID Acid Reflux insulin degludec 100 unit/mL (3 mL) subcutaneous pen (Tresiba FlexTouch U-100 insulin) 30 - 40 unit subcut HS lisinopril 10 mg tablet 10 mg PO QAM pioglitazone 45 mg tablet 45 mg PO QAM sertraline 50 mg tablet 50 mg PO HS simvastatin 10 mg tablet (Zocor) 10 mg PO HS albuterol sulfate 90 mcg/actuation aerosol inhaler 2 puff inhalation QID PRN Shortness Of Breath cholecalciferol (vitamin D3) 125 mcg (5,000 unit) tablet (Vitamin D3) 125 mcg PO BID DO NOT take the morning of surgery cyanocobalamin (vitamin B-12) 2,500 mcg tablet 5,000 mcg PO QAM lisinopril 10 mg tablet 10 mg PO QAM pioglitazone 45 mg tablet 45 mg PO QAM cholecalciferol (vitamin D3) 125 mcg (5,000 unit) tablet (Vitamin D3) 125 mcg PO BID Take morning of surgery With a small sip of water, OTHERWISE NOTHING TO EAT OR DRINK AFTER MIDNIGHT: famotidine 20 mg tablet (Pepcid) 20 mg PO BID Acid Reflux albuterol sulfate 90 mcg/actuation aerosol inhaler 2 puff inhalation QID PRN Shortness Of Breath (use if needed; please bring rescue inhaler with you to hospital day of surgery if possible) Take evening before surgery famotidine 20 mg tablet (Pepcid) 20 mg PO BID Acid Reflux insulin degludec 100 unit/mL (3 mL) subcutaneous pen (Tresiba FlexTouch U-100 insulin) 30 - 40 unit subcut HS sertraline 50 mg tablet 50 mg PO HS simvastatin 10 mg tablet (Zocor) 10 mg PO HS albuterol sulfate 90 mcg/actuation aerosol inhaler 2 puff inhalation QID PRN Shortness Of Breath (if needed) cholecalciferol (vitamin D3) 125 mcg (5,000 unit) tablet (Vitamin D3) 125 mcg PO BID Other Notes If you have any questions please call us at [phone] or [phone] or [phone] or [phone]
--- NOTE | 2025-01-21 10:10 | Anesthesiology Consultation ---
Date of Service January 21, 2025 Assessment & Plan (1) Encounter for pre-operative examination: Plan awaiting: - cardiology clearance as patient reports intermittent chest discomfort without previous discussion or evaluation with any provider. Asymptomatic in clinic. He chose [facility], surgeon's office made aware. - surgeon ordered medical clearance, 02/01/25. - check BSG am DOS. Chart Review Chart Review: Pending: Refer to Additional Notes / Consult section and Patient seen in Pre Admission Testing Teaching & Discussion Pre-Anesthesia Teaching/Discussion Notes: Instructed NPO after midnight before surgery, except medications with 15 cc of water. Medication instructions provided according to the PAT guidelines. History Surgery Operation Date: 02/11/25 09:35 Proposed Procedures p Decompression and Fusion T11-L2 - Tha Murdock, Height/Weight Height: 5 ft 8 in Weight: 108 kg Allergies Allergy/AdvReac Type Severity Reaction Status Date / Time No Known Allergies Allergy Verified 01/20/25 10:34 Medications Home Medications Medication Instructions Recorded Confirmed Last Taken cyanocobalamin (vitamin B-12) 5,000 mcg PO QAM 04/15/23 01/20/25 05/20/23 2,500 mcg tablet famotidine 20 mg tablet (Pepcid) 20 mg PO BID Acid Reflux 04/15/23 01/20/25 Unknown insulin degludec 100 unit/mL (3 30 - 40 unit subcut HS 04/15/23 01/20/25 05/19/23 mL) subcutaneous pen (Tresiba FlexTouch U-100 insulin) lisinopril 10 mg tablet 10 mg PO QAM 04/15/23 01/20/25 05/20/23 pioglitazone 45 mg tablet 45 mg PO QAM 04/15/23 01/20/25 05/20/23 sertraline 50 mg tablet 50 mg PO HS 04/15/23 01/20/25 05/19/23 simvastatin 10 mg tablet (Zocor) 10 mg PO HS 04/15/23 01/20/25 05/19/23 albuterol sulfate 90 mcg/actuation 2 puff inhalation QID PRN 01/20/25 01/20/25 Unknown aerosol inhaler Shortness Of Breath cholecalciferol (vitamin D3) 125 125 mcg PO BID 01/20/25 01/20/25 Unknown mcg (5,000 unit) tablet (Vitamin D3) Past Medical History Medical History (Updated 01/21/25 @ 10:24 by Elise Lo PA-C) Acid reflux controlled, stable per pt Anxiety Arthritis Asthma "well controlled," inh prn > rare use Depression Diabetes mellitus, type 2 IDDM Hyperlipidemia Hypertension controlled, stable per pt Spinal stenosis Patient denies h/o stroke, seizures, heart attack, heart failure, blood clots/DVTs or blood transfusions. Exercise / Class Metabolic Activity III < 4 Walking/Shop/Light housework (occasional chest discomfort with activities-denies previous discussion or evaluation with any provider; denies shortness of breath with usual activities) Past Family History Family History Mother Diabetes Father Diabetes Sister Diabetes Past Surgical History Surgical History History of anesthesia reaction some short term memory issues after thumb surgery (went into a store right after the surgery and didn't remember it) History of tooth extraction full dentures upper and lower Hx of cervical spine surgery (2022) ACDF C3-C4, C5 corpectomy Hx of thumb surgery left Past Anesthesia History No Family Hx of Anesthesia Complications and Other (short term memory loss after left thumb surgery) History of PONV No Hx of PONV and No Hx of Motion Sickness Social History Smoking Status: Former smoker Do You Dip or Chew Tobacco: No (quit ~2018) Smoking End Date: ~2018 Hx Alcohol Use: Yes alcohol intake frequency: holidays/special occasions only Hx Substance Use: Yes substance use type: former substance user and marijuana Last Used Substance Other:: years ago Review of Systems Snoring, denies witnessed apneas. Patient denies shortness of breath, dyspnea on exertion, fever, chills, cough, wheezing, or palpitations. Physical Exam Vital Signs Vitals BP 106/68 P 60 TEMP 98.4 SP02 95% on RA RESP 18 Physical Patient resting comfortably in chair in no acute distress, alert and oriented, responding appropriately throughout visit Full cervical extension range of motion without pain TMD 3.5 finger breadths Mallampati Score 2 Dentition: edentulous, full upper and lower dentures Lungs: normal respiratory effort. Good air movement, clear throughout to auscultation, no adventitious breath sounds Cardiac: regular rate and rhythm, no murmurs noted Carotid arteries: negative bruit bilat Lab Results Anesthesia Preop Results Results Anesthesia Widget: WBC 6.84 K/ul (4.8-10.8) 01/21/25 Hgb 12.7 g/dl (14.0-18.0) L 01/21/25 Hct 37.4 % (42.0-52.0) L 01/21/25 Plt 227 K/uL (130-400) 01/21/25 Na 140 mmol/L (136-145) 01/21/25 K 3.8 mmol/L (3.5-5.1) 01/21/25 Cl 106 mmol/L (98-107) 01/21/25 CO2 29 mmol/L (21-32) 01/21/25 BUN 16 mg/dl (6-23) 01/21/25 Creat 0.80 mg/dl (0.6-1.4) 01/21/25 Glucose Level 186 mg/dl (70-99(Fasting)) H 01/21/25 PT 10.9 Seconds (9.0-12.0) 01/21/25 PTT 27 Seconds (21-31) 01/21/25 INR 1.0 (0.9-1.1) 01/21/25 HA1c 6.3 % (4.5-5.6) H 01/21/25 Urine Color Dark Yellow 01/21/25 Urine Appearance Clear (Clear) 01/21/25 Urine pH 6.0 (4.5-7.5) 01/21/25 Urine Specific [place] 1.030 (1.000-1.030) 01/21/25 Urine Protein Negative (Negative) 01/21/25 Urine Glucose (UA) Negative (Negative) 01/21/25 Urine Ketones Trace (Negative) H 01/21/25 Urine Blood Negative (Negative) 01/21/25 Urine Nitrite Negative (Negative) 01/21/25 Urine Bilirubin Negative (Negative) 01/21/25 Urine Urobilinogen Positive (Negative) H 01/21/25 Urine Leukocyte Esterase Trace (Negative) H 01/21/25 Urine WBC (Auto) 0-5 /hpf (0-5) 01/21/25 Urine RBC (Auto) 0-2 /hpf (0-2) 01/21/25 Urine Hyaline Casts (Auto) 0-2 /lpf (0-2) 01/21/25 Urine Epithelial Cells (Auto) 0-2 /hpf (0-2) 01/21/25 Urine Bacteria (Auto) None Seen (None Seen) 01/21/25 Blood Type O Positive 01/21/25 Antibody Screen NEGATIVE 01/21/25 Testing Electrocardiogram Date: 01/21/25 Sinus bradycardia, rate 56 bpm Chest X-Ray Date: 01/21/25 No acute findings.
--- NOTE | 2025-02-10 15:45 | Communication Note ---
Date of Service: February 10, 2025 - formal [facility]ology documentation sent in provider to provider note: "Regarding his dobutamine stress test. It had to be terminated due to hypertension. He did not take his medications that day. Our office should be taking care of him being rescheduled. Due to this, I cannot give him cardiac clearance."
[2025-04-22 06:37] LABS: Hematocrit (blood only) 42.3 % (42.0-52.0); Hemoglobin 14.1 g/dL (14.0-18.0); Immature Granulocytes # (auto) 0.03 K/uL (0.01-0.20); Immature Granulocytes % (auto) 0.4 %; Mean Corpuscular Hemoglobin 31.3 pg (25.0-34.0); Mean Corpuscular Volume 93.8 fL (80.0-100.0); Platelet Count 223 K/uL (130-400); RDW Standard Deviation 45.3 fL (36.4-46.3); Red Blood Count 4.51 M/uL (4.70-6.10); White Blood Count 7.89 K/ul (4.8-10.8)
[2025-04-22] MEDS ORDERED: ONDANSETRON INJ 2 MG/ML 2 ML VIAL ONE (06:50)
[2025-04-22] MEDS ORDERED: MIDAZOLAM HCL 1 MG/ML 2ML VIAL ONE (06:50)
[2025-04-22] MEDS ORDERED: ROCURONIUM BROMIDE 10 MG/ML 5 ML VIAL IV ONE ×2 (06:50→08:34)
[2025-04-22] MEDS ORDERED: LIDOCAINE 2% 2 ML VIAL/AMP(20MG/ML) INFIL ONE (06:50)
[2025-04-22] MEDS ORDERED: PROPOFOL IV EMULSION 10 MG/ML 20 ML VIAL IV ONE (06:50)
[2025-04-22] MEDS: ACETAMINOPHEN 500 MG TAB PO SCH (06:52)
[2025-04-22] MEDS: CeleBREX 200 MG CAP PO SCH (06:52)
[2025-04-22] MEDS: GABAPENTIN 900 MG DOSE PO SCH (06:53)
[2025-04-22 06:54] LABS: Anion Gap 6.0 (3-11); Blood Urea Nitrogen 16.0 mg/dl (6-23); Calcium 9.6 mg/dl (8.6-10.3); Carbon Dioxide 31.0 mmol/L (21-32); Chloride 104.0 mmol/L (98-107); Creatinine Clr Calc Pharmacy 128.2 ml/min; Glucose 135.0 mg/dl (70-99(Fasting)); Potassium 4.3 mmol/L (3.5-5.1); Sodium 141.0 mmol/L (136-145)
[2025-04-22] MEDS: LR 60ML/HR IV SCH (06:55)
[2025-04-22] MEDS: LACTATED RINGER'S 1,000 ML IV SCH (07:02)
[2025-04-22 07:12] LABS: INR 1.0 (0.9-1.1); Partial Thromboplastin Time 27 Seconds (21-31); Prothrombin Time 11.0 Seconds (9.0-12.0)
[2025-04-22] MEDS ORDERED: ONDANSETRON INJ 2 MG/ML 2 ML VIAL IV PRN ×2 (07:26→11:43)
[2025-04-22] MEDS ORDERED: HYDROmorphone INJ 2 MG/ML SYR/VIAL IV PRN (07:26)
[2025-04-22] MEDS ORDERED: HYDROmorphone INJ 1 MG/ML SYRINGE IV PRN (07:26)
[2025-04-22] MEDS ORDERED: ATROPINE SULFATE 0.1 MG/ML 10ML SYR IV PRN (07:26)
--- NOTE | 2025-04-22 07:37 | History & Physical Bridge Note ---
Date of Service April 22, 2025 History & Physical Bridge Note I have examined the patient, reviewed the History & Physical and in the interval since the performance of the History & Physical I have noted the following changes of clinical significance: no changes noted
--- NOTE | 2025-04-22 07:38 | History & Physical Report ---
Date of Service April 22, 2025 Assessment & Plan (1) Myelopathy concurrent with and due to spinal stenosis of thoracic region: Plan: Decompression and fusion T11-L2 History of Present Illness Chief Complaint: Back and leg pain Primary Care Provider: Cody Johansen MD this is a 54-year-old male who presents with thoracic spinal stenosis and myelopathy is here for decompression. Allergies Allergy/AdvReac Type Severity Reaction Status Date / Time No Known Allergies Allergy Verified 04/12/25 12: Home Medications Medication Instructions Recorded Confirmed Type cyanocobalamin (vitamin B-12) 5,000 mcg PO QAM 04/15/23 04/22/25 History 2,500 mcg tablet famotidine 20 mg tablet (Pepcid) 20 mg PO BID Acid Reflux 04/15/23 04/22/25 History insulin degludec 100 unit/mL (3 30 - 40 unit subcut HS 04/15/23 04/22/25 History mL) subcutaneous pen (Tresiba FlexTouch U-100 insulin) lisinopril 10 mg tablet 10 mg PO QAM 04/15/23 04/22/25 History pioglitazone 45 mg tablet 45 mg PO QAM 04/15/23 04/22/25 History sertraline 50 mg tablet 50 mg PO HS 04/15/23 04/22/25 History simvastatin 10 mg tablet (Zocor) 10 mg PO HS 04/15/23 04/22/25 History albuterol sulfate 90 mcg/actuation 2 puff inhalation QID PRN 01/20/25 04/12/25 History aerosol inhaler Shortness Of Breath cholecalciferol (vitamin D3) 125 125 mcg PO BID 01/20/25 04/22/25 History mcg (5,000 unit) tablet (Vitamin D3) acetaminophen 500 mg tablet 1,000 mg PO TID PRN Pain 04/12/25 04/22/25 History Past Med/Surg History Problem List (Updated 04/22/25 @ 07:38 by Tha Murdock DO) Myelopathy concurrent with and due to spinal stenosis of thoracic region Atypical chest pain Carpal tunnel syndrome on both sides Cervical radiculopathy Myelopathy concurrent with and due to spinal stenosis of cervical region Encounter for pre-operative examination Anxiety Type 2 diabetes mellitus Medical History (Updated 04/22/25 @ 07:38 by Tha M Collette, DO) Asthma "well controlled," inh prn > rare use Diabetes mellitus, type 2 IDDM Anxiety Spinal stenosis Arthritis Acid reflux controlled, stable per pt Depression Hypertension controlled, stable per pt Hyperlipidemia Surgical History Hx of cervical spine surgery (2022) ACDF C3-C4, C5 corpectomy History of anesthesia reaction some short term memory issues after thumb surgery (went into a store right after the surgery and didn't remember it) Hx of thumb surgery left History of tooth extraction full dentures upper and lower Family History (Updated 04/12/25 @ 12:38 by Jennie Geiger, EDUAR) Mother Diabetes Father Diabetes Sister Diabetes Other No family history of adverse response to anesthesia Social History Smoking Status: Former smoker Smoking End Date: ~2018; Second Hand Exposure: Yes (hx); Do You Dip or Chew Tobacco: No (quit ~2018); Tobacco Cessation Education Requested by Patient: No Hx Alcohol Use: Yes Hx Substance Use: Yes Last Used Substance Other:: years ago Preferred Language: Ukrainian Communication Ability: Effective Structural Shop Helper Required: No Beliefs That Will Affect Care: None Current Living Situation: Significant Other Other Information That Helps Us Care for You: No Feels Safe at Home: Yes Safety Concerns: Feels Safe At This Time Assistive Devices: Denture - Upper, Denture - Lower and Glasses Assistive Devices Comment: reading glasses prn Physical Exam Physical Exam: Patient is alert and oriented heart regular rhythm Lungs clear Results & Data Results & Data Vital Signs (Past 12 Hours) Vital Signs Temp Pulse Resp Pulse Ox O2 Del Method 04/22/25 06:38 36.5 C 60 25 H 97 Room Air
[2025-04-22] MEDS: BUPIVACAINE/EPINEPHRINE 0.25% 1:200,000 30 ML VIAL ONE (08:17)
[2025-04-22] MEDS ORDERED: SUGAMMADEX SODIUM 200 MG/2 ML VIAL IV ONE ×2 (08:29→09:55)
[2025-04-22] MEDS: ceFAZolin 330 MG/ML 1 GM VIAL ONE (08:49)
[2025-04-22] MEDS: SURGICEL ABSORB HEMOSTAT 2IN X 14IN TOP ONE (08:51)
[2025-04-22] MEDS ORDERED: ePHEDrine sulfate 50 MG/5 ML SYR ONE (09:15)
[2025-04-22] MEDS: FLOSEAL HEMOSTATIC MATRIX 10ML TOP ONE (09:39)
--- NOTE | 2025-04-22 09:58 | Operative Report ---
Post Operative Report Pre & Post Diagnosis Operation Date: 04/22/25 07:45 Pre-Op Diagnosis: Myelopathy Concurrent With and Due to Spinal Stenosis of thoracic region Post-Op Diagnosis: Myelopathy Concurrent With and Due to Spinal Stenosis of thoracic region I identified the patient and participated in the time-out.: Yes Procedure Operation Date: 04/22/25 07:45 Actual Procedures #1 decompression with bilateral facetectomies foraminotomies T11-T12, T12-L1, L1-L2. #2 posterior spinal fusion T11-L2. #3 placed in posterior segment of instrumentation T11-T12. #4 interbody fusion L1-L2. #5 placement of Spira 10 x 26 mm at L1-L2. #6 placement of Koros combined with Proteus bone graft to posterior lateral gutters and os design in the interbody space. #7 application of versa wrap of the exposed dura. Surgeon Tha Murdock, DO [employer] Specialist Kirk Ruiz Estimated Blood Loss 300 Findings See Below Patient is 5 foot 8 weighing over 109 kg with a BMI in excess of 36. Patient's body image did create significant technical difficulty with positioning exposure and the procedure itself. This added at least 40% increased operative time. And recommending modifier 22. Specimens None Indications This is a 54-year-old male who presents above-mentioned diagnosis after failing course of nonoperative care is here for surgical invention. Description of Procedure Patient was met with identified informed consent obtained. Patient was then taken to the operative suite and patient placed in a prone position on the Chad table on top of the Wesley frame. All bony promises well-padded eyes inspected to ensure no external precipice upon them. This point the thoracolumbar spine was prepped and draped in normal sterile fashion. Sharp dissection with the assistance of Bovie cautery performed down to and exposing the lamina transverse processes of T11 T12-L1 and L2. From a caudal to cephalad fashion complete laminectomy of L1 T12 and T11 was performed including bilateral medial facetectomies to address all canal stenosis. Pedicle screws were then placed in T11-T12 L1-L2 bilaterally with assistance of fluoroscopy. By way of transforaminal approach on the left with complete discectomy of L1-L2 was performed. Endplates guided to subcortical bleeding bone and a 10 x 26 mm Spira cage filled with os design bone graft tapped in position. Appropriate size rods were then placed locked into final position bilaterally. The transverse processes of T11-T12 L1-L2 burred to subcortical bleeding bone. Koros combined with Proteus bone graft placed in posterolateral gutters. Burst wrap placed to exposed dura. 15 round DINA drain inserted. Incision was then closed 1 Vicryl fascia 2-0 Vicryl subcutaneously and 4-0 Monocryl for final skin closure. Steri-Strips sterile dressing placed. Patient waken taken to PACU stable condition. Please note Kirk Goodwin was present of the entire procedure and brought the patient positioning complex portion of the surgery and final skin closure. I attest to the content of the Intraoperative Record and any orders documented therein. Any exceptions are noted below.
--- NOTE | 2025-04-22 10:35 | Fluoroscopy Report ---
INTRAOPERATIVE FLUOROSCOPIC IMAGES: CLINICAL HISTORY: Decompression and fusion. COMPARISON: None. Fluoroscopy time: 24 seconds. Number of fluoroscopic images: 2 Ka,r: 32.077 mGy. FINDINGS: Exact localization is not possible given partial visualization of the lumbar spine. These i mages demonstrate a posterior decompression with bilateral lumbar spine pedicle screw fusion. There a re interconnecting rods. Hardware is intact. Interbody spacer is noted. No unexpected radiopaque fore ign bodies. IMPRESSION: Fluoroscopy provided during lumbar spine decompression and fusion, as described above. Electronically signed by: Johny Masterson M.D. 04/22/2025 10:34 AM
[2025-04-22] MEDS ORDERED: ALBUTEROL HFA 8 GM INHALER INH PRN (11:43)
[2025-04-22] MEDS ORDERED: SOD PHOSPHATE/SOD BIPHOSPHATE ENEMA 132 ML BTL PR PRN (11:43)
[2025-04-22] MEDS ORDERED: DO NOT ADMINISTER FLU VACCINE PRN (11:43)
[2025-04-22] MEDS ORDERED: PROMETHAZINE 12.5 MG/50.5 ML BAG IV PRN (11:43)
[2025-04-22] MEDS ORDERED: DO NOT ADMINISTER PNEUMOCOCCAL VACCINE PRN (11:43)
[2025-04-22] MEDS ORDERED: PHARMACY GLYCEMIC MGMT CONSULT PRN (11:43)
[2025-04-22] MEDS ORDERED: NALOXONE HCL 0.4 MG/1 ML VIAL/CARP IV PRN (11:43)
[2025-04-22] MEDS ORDERED: LORazepam Inj 0.5 MG in SYRINGE 0.25 ML IV PRN (12:00)
[2025-04-22] MEDS ORDERED: MAGNESIUM HYDROXIDE SUSP 30 ML UDC PO PRN (12:00)
[2025-04-22] MEDS ORDERED: ALUMINUM/MAGNESIUM SUSP 30 ML UDC PO PRN (12:05)
[2025-04-22] MEDS ORDERED: FAMOTIDINE 20 MG TAB PO PRN (12:05)
[2025-04-22] MEDS ORDERED: diphenhydrAMINE Capsule 25 MG CAP PO PRN (12:05)
[2025-04-22] MEDS ORDERED: METOCLOPRAMIDE HCL INJ 5 MG/ML 2 ML VIAL IV PRN (12:06)
[2025-04-22] MEDS ORDERED: ONDANSETRON 4 MG OD TAB PO PRN (12:10)
[2025-04-22] MEDS ORDERED: ACETAMINOPHEN 1,000 MG/100 ML VIAL IV PRN (12:10)
[2025-04-22] MEDS: SODIUM CHLORIDE 0.9% 1,000 ML IV SCH (12:12)
--- NOTE | 2025-04-22 12:20 | Consultation ---
Date of Consultation April 22, 2025 Assessment & Plan (1) S/P spinal surgery: (2) Myelopathy concurrent with and due to spinal stenosis of thoracic region: Post op day# 0 S/P T11-L2 decompression and fusion by Dr Collette GREEN#300ml Pain management per ortho Wound management per ortho PT/OT as appropriate DVT prophylaxis per ortho Incentive spirometry Monitor H&H for acute blood loss anemia; pre-op Hgb: 14 (3) Type 2 diabetes mellitus: Insulin dependent A1c: 6.3 on 01/21/2025 Hold home pioglitazone and insulin. Glycemic pharmacy on board, appreciate glycemic management (4) Hypertension: Resume lisinopril tomorrow with holding parameters (5) Hyperlipidemia: Continue simvastatin (6) Depression: (7) Anxiety: Continue sertraline DVT Prophylaxis SCDs Disposition per primary service Follows with Dr Johansen in [place] for routine care Pt was seen and care coordinated with Dr Soto. See addendum I spent a total of 40 minutes reviewing notes, outpatient records, labs, medication, coordinating, documenting and providing care for this patient excluding time spent in the performance of separately billed services and excluding time spent by another provider/QHP. Thank you for this consultation. We will follow the patient with you during their hospital stay. You can reach a [facility] of [facility] via [facility] Supervising Physician Co-Signing Physician Notes Attending Addendum: Case reviewed with the advanced practitioner. I have personally performed a history and physical examination on the patient. I have reviewed the advanced practitioner's documentation on the date of service referenced in note, and I agree with, and take responsibility for the plan of care. please refer to her notes for full details patient seen and examined, records reviewed by myself as well on exam, patient seen resting in bed, not in distress patient reports having some nausea No abdominal pain, shortness of breath, chest pain no other symptoms VS noted and reviewed oriented x3, not in distress, speaks in sentences with no effort nor accessory muscle use normal rate, regular rhythm, no murmurs clear breath sounds bilaterally non distended, soft, nontender no bipedal edema, erythema, warmth no neuro deficits all labs, imaging noted and reviewed ASSESSMENT AND PLAN> status post lumbar spine surgery Stable overall Monitor hemoglobin Diabetes type 2 Hold oral meds Lantus,Insulin sliding scale Hypertension BP on the lower side hold Lisinopril continue IV fluids other diagnoses and plan of care as per advanced practitioner's notes I spent a total of 20 minutes coordinating, documenting, and providing care for this patient, excluding time spent in the performance of separately billed services or time spent by another provider/QHP. Silvino Soto MD History of Present Illness Requesting Physician: Dr Murdock Reason for Consultation: Post op medical management Attending Physician: Tha Murdock, DO History of Present Illness Patient is 54-year-old male PMH DM II, HTN, HLD, GERD, anxiety, depression seen in medical consultation s/p T11-L2 decompression and fusion today by Dr. Murdock. Postop patient reports back pain. He reports still sleepy but feels that cannot get comfortable secondary to back pain. Patient just received oxycodone. Has Crocker catheter in place. Reports last BM yesterday. Denies fever/chills, N/V/D/C, JAMIL, dizziness, CP, SOB, abdominal pain, paresthesias, extremity edema, rashes, urinary symptoms. Allergies Allergy/AdvReac Type Severity Reaction Status Date / Time No Known Allergies Allergy Verified 04/12/25 12:25 Home Medications Medication Instructions Recorded Confirmed Type cyanocobalamin (vitamin B-12) 5,000 mcg PO QAM 04/15/23 04/22/25 History 2,500 mcg tablet famotidine 20 mg tablet (Pepcid) 20 mg PO BID Acid Reflux 04/15/23 04/22/25 History insulin degludec 100 unit/mL (3 30 - 50 unit subcut HS 04/15/23 04/22/25 History mL) subcutaneous pen (Tresiba FlexTouch U-100 insulin) lisinopril 10 mg tablet 10 mg PO QAM 04/15/23 04/22/25 History pioglitazone 45 mg tablet 45 mg PO QAM 04/15/23 04/22/25 History sertraline 50 mg tablet 50 mg PO HS 04/15/23 04/22/25 History simvastatin 10 mg tablet (Zocor) 10 mg PO HS 04/15/23 04/22/25 History albuterol sulfate 90 mcg/actuation 2 puff inhalation QID PRN 01/20/25 04/12/25 History aerosol inhaler Shortness Of Breath cholecalciferol (vitamin D3) 125 125 mcg PO BID 01/20/25 04/22/25 History mcg (5,000 unit) tablet (Vitamin D3) acetaminophen 500 mg tablet 1,000 mg PO TID PRN Pain 04/12/25 04/22/25 History oxycodone 5 mg tablet 5 mg PO Q6H PRN pain #30 tabs 04/22/25 Rx tramadol 50 mg tablet 50 mg PO Q6H PRN pain, moderate 04/22/25 Rx #30 tabs Patient History Medical History Asthma "well controlled," inh prn > rare use Diabetes mellitus, type 2 IDDM Anxiety Spinal stenosis Arthritis Acid reflux controlled, stable per pt Depression Hypertension controlled, stable per pt Hyperlipidemia Surgical History Hx of cervical spine surgery (2022) ACDF C3-C4, C5 corpectomy History of anesthesia reaction some short term memory issues after thumb surgery (went into a store right after the surgery and didn't remember it) Hx of thumb surgery left History of tooth extraction full dentures upper and lower Family History Mother Diabetes Father Diabetes Sister Diabetes Other No family history of adverse response to anesthesia Social History Smoking Status: Former smoker Smoking End Date: ~2018; Second Hand Exposure: Yes (hx); Do You Dip or Chew Tobacco: No (quit ~2018); Tobacco Cessation Education Requested by Patient: No Hx Alcohol Use: Yes Hx Substance Use: Yes Last Used Substance Other:: years ago Preferred Language: Kenyan Communication Ability: Effective 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 Beliefs That Will Affect Care: None Current Living Situation: Significant Other Other Information That Helps Us Care for You: No Feels Safe at Home: Yes Safety Concerns: Feels Safe At This Time Assistive Devices: Denture - Upper, Denture - Lower and Glasses Assistive Devices Comment: reading glasses prn Review of Systems Review of Systems: All systems reviewed & are unremarkable except as noted in HPI & below Physical Exam Physical Exam: General: +drowsy, awakens to voice and reports back pain, overweight male Head: normocephalic, atraumatic Eyes: conjunctiva non-injected, anicteric ENT: normal inspection external ears, nose, mucous membranes moist Neck: supple, trachea midline Lungs: clear, no respiratory distress, no wheezing/rhonchi/rales CV: RRR, no murmur, no pretibial edema Abd: protuberant, normal BS, soft, non-tender Back: +DINA drain in place with serosanguineous drainage Ext: SCDs in place, no calf tenderness, pedal pushes and pulls intact bilaterally, sensation to light touch intact Neuro: A&O x 3, no focal deficits noted, normal affect Skin: warm, dry Results & Data Vital Signs (Past 12 Hours) Vital Signs Temp Pulse Pulse Pulse Resp BP Pulse Ox 04/22/25 11:47 04/22/25 11:44 36.5 C 84 16 133/84 92 04/22/25 11:15 79 15 138/90 93 04/22/25 11:10 77 16 117/90 92 04/22/25 11:00 74 14 140/88 92 04/22/25 10:50 36.4 C L 74 14 134/83 92 04/22/25 10:40 75 14 132/88 95 04/22/25 10:30 82 16 139/72 95 04/22/25 10:24 36.0 C L 88 14 105/71 91 04/22/25 06:38 36.5 C 60 25 H 97 O2 Del Method O2 Flow Rate 04/22/25 11:47 Nasal Cannula 3 04/22/25 11:44 Nasal Cannula 3 04/22/25 11:15 Nasal Cannula 4 04/22/25 11:10 Nasal Cannula 4 04/22/25 11:00 Nasal Cannula 4 04/22/25 10:50 Oxymask 7 04/22/25 10:40 Oxymask 10 04/22/25 10:30 Oxymask 10 04/22/25 10:24 Oxymask 10 04/22/25 06:38 Room Air Laboratory Results Short CBC 04/22/25 Range/Units 06:23 WBC 7.89 (4.8-10.8) K/ul Hgb 14.1 (14.0-18.0) g/dL Hct 42.3 (42.0-52.0) % Plt Count 223 (130-400) K/uL BMP 04/22/25 06:23 Sodium 141 Potassium 4.3 Chloride 104 Carbon Dioxide 31 BUN 16 Creatinine 0.79 Glucose 135 H Calcium 9.6 Diagnostic Findings Thoracic Spine X-Ray 04/22/25 07:45 INTRAOPERATIVE FLUOROSCOPIC IMAGES: CLINICAL HISTORY: Decompression and fusion. COMPARISON: None. Fluoroscopy time: 24 seconds. Number of fluoroscopic images: 2 Ka,r: 32.077 mGy. FINDINGS: Exact localization is not possible given partial visualization of the lumbar spine. These images demonstrate a posterior decompression with bilateral lumbar spine pedicle screw fusion. There are interconnecting rods. Hardware is intact. Interbody spacer is noted. No unexpected radiopaque foreign bodies. IMPRESSION: Fluoroscopy provided during lumbar spine decompression and fusion, as described above. Electronically signed by: Johny Masterson M.D. 04/22/2025 10:34 AM
--- NOTE | 2025-04-22 12:21 | Anesthesiology Progress Note ---
Date of Service April 22, 2025 Anesthesia Post Procedure Vital Signs Vital Signs: Temp Pulse Pulse Pulse Resp BP Pulse Ox 04/22/25 12:15 36.5 C 82 16 143/84 H 94 04/22/25 11:47 04/22/25 11:44 36.5 C 84 16 133/84 92 04/22/25 11:15 79 15 138/90 93 04/22/25 11:10 77 16 117/90 92 04/22/25 11:00 74 14 140/88 92 04/22/25 10:50 36.4 C L 74 14 134/83 92 04/22/25 10:40 75 14 132/88 95 04/22/25 10:30 82 16 139/72 95 04/22/25 10:24 36.0 C L 88 14 105/71 91 04/22/25 06:38 36.5 C 60 25 H 97 O2 Del Method O2 Flow Rate 04/22/25 12:15 Nasal Cannula 2 04/22/25 11:47 Nasal Cannula 3 04/22/25 11:44 Nasal Cannula 3 04/22/25 11:15 Nasal Cannula 4 04/22/25 11:10 Nasal Cannula 4 04/22/25 11:00 Nasal Cannula 4 04/22/25 10:50 Oxymask 7 04/22/25 10:40 Oxymask 10 04/22/25 10:30 Oxymask 10 04/22/25 10:24 Oxymask 10 04/22/25 06:38 Room Air Pain Intensity Lower Back: Pain Intensity: 8 Transfer of Care Handoff Completed per policy Notes Mental Status: alert / awake / arousable Patient Amnestic to Procedure: Yes Nausea / Vomiting: adequately controlled Pain: adequately controlled Airway Patency, RR, SpO2: stable & adequate BP & HR: stable & adequate Hydration State: stable & adequate Anesthetic Complications: no major complications apparent and Pt Satisfied with anesthetic care
[2025-04-22] MEDS ORDERED: GLUCAGON FOR INJ 1 MG VIAL SQ PRN (12:30)
[2025-04-22] MEDS ORDERED: GLUCOSE 40% GEL 15 GM TUBE PO PRN (12:30)
[2025-04-22] MEDS ORDERED: DEXTROSE 50% 50 ML SYRINGE IV PRN (12:30)
[2025-04-22] MEDS ORDERED: GLUCOSE 10 TAB/TUBE PO PRN (12:30)
[2025-04-22] MEDS ORDERED: CARBOHYDRATES FOR HYPOGLYCEMIA PO PRN (12:30)
--- NOTE | 2025-04-22 14:12 | Pharmacy Report ---
Pharmacy Glycemic Short Note 2 - Date of Service April 22, 2025 - Glycemic Short BSG Results (Last 24 hours): 04/22/25 04/22/25 04/22/25 06:23 06:44 10:28 Glucose 135 H POC Glucose 136 H 150 H 04/22/25 11:49 Glucose POC Glucose 161 H OUTPATIENT ANTIDIABETIC REGIMEN: * Tresiba - self adjusts dose (30-50 units/day) * Pioglitazone 45 mg po daily ASSESSMENT: * 54 year old s/p surgery, POD 0 - pharmacy consulted for glycemic management. Discussed with patient and clarified outpatient Tresiba dosing. He reports he takes anywhere from 30-50 units HS depending on blood sugar value/PO intake. Reports he "thinks" he took 50 units last evening. Will have scale on for Lantus at HS time as unsure what PO intake will be. Will PLAN FOR INPATIENT GLYCEMIC CONTROL: * Hold outpatient oral diabetes medications * Basal insulin * Lantus 20-30 units HS * Bolus insulin * NovoLog per scale ACHS or Q6hrs while NPO * Goal Range: Low 110 mg/dL - High 140 mg/dL * Correction Factor: 20 mg/dL/unit * Nutritional / Prandial insulin per carb ratio of 1 unit per 7 grams CHO consumed
[2025-04-22] MEDS: INSULIN ASPART PER UNIT CHARGE SC SCH (14:18)
[2025-04-22] MEDS: HYDROmorphone INJ 1 MG/ML SYRINGE IV PRN (19:31)
[2025-04-22] MEDS: SIMVASTATIN 10 MG TAB PO SCH (21:25)
[2025-04-22] MEDS: CHOLECALCIFEROL 125 MCG (5,000 UNITS) TAB PO SCH (21:25)
[2025-04-22] MEDS: DOCUSATE SODIUM/SENNA 50/8.6MG TAB PO SCH (21:25)
[2025-04-22] MEDS: FAMOTIDINE 20 MG TAB PO SCH (21:25)
[2025-04-22] MEDS: SERTRALINE HCL 50 MG TABLET PO SCH (21:25)
[2025-04-22] MEDS: LANTUS PER UNIT CHARGE SC SCH (21:51)
[2025-04-23] MEDS: LORazepam 0.5 MG TAB PO PRN (03:12)
[2025-04-23 06:19] LABS: Hematocrit (blood only) 34.1 % (42.0-52.0); Hemoglobin 11.5 g/dL (14.0-18.0); Immature Granulocytes # (auto) 0.05 K/uL (0.01-0.20); Immature Granulocytes % (auto) 0.4 %; Mean Corpuscular Hemoglobin 31.8 pg (25.0-34.0); Mean Corpuscular Volume 94.2 fL (80.0-100.0); Platelet Count 187 K/uL (130-400); RDW Standard Deviation 46.3 fL (36.4-46.3); Red Blood Count 3.62 M/uL (4.70-6.10); White Blood Count 13.03 K/ul (4.8-10.8)
[2025-04-23 06:36] LABS: Anion Gap 6.0 (3-11); Blood Urea Nitrogen 18.0 mg/dl (6-23); Calcium 8.6 mg/dl (8.6-10.3); Carbon Dioxide 27.0 mmol/L (21-32); Chloride 102.0 mmol/L (98-107); Creatinine Clr Calc Pharmacy 140.7 ml/min; Glucose 167.0 mg/dl (70-99(Fasting)); Potassium 4.4 mmol/L (3.5-5.1); Sodium 135.0 mmol/L (136-145)
[2025-04-23] MEDS: POLYETHYLENE (MIRALAX) 17 GM PACK PO SCH (06:42)
[2025-04-23] MEDS: CYANOCOBALAMIN (B-12) 2,500 MCG TABLET PO SCH (08:58)
[2025-04-23] MEDS: dexAMETHasone 6 MG in SYRINGE 0 ML IV SCH (08:59)
[2025-04-23] MEDS ORDERED: NON-FORMULARY MEDICATION (Pioglitazone 45 mg Tablet) PO SCH (09:00)
--- NOTE | 2025-04-23 10:05 | Orthopedic Progress Note ---
Date of Service April 23, 2025 Assessment & Plan (1) Myelopathy concurrent with and due to spinal stenosis of thoracic region: Plan: At this point we will initiate physical therapy monitor his DINA output over discharge home in the next few days. Admission and Anticipated Discharge Date Admission Date: April 22, 2025 Subjective Patient's back pain is controlled leg pain improved Physical Exam Physical Exam: Patient currently in bed. Is good strength testing. Results & Data Vital Signs (Past 12 Hours) Vital Signs Temp Pulse Resp BP BP Pulse Ox O2 Del Method 04/23/25 07:18 36.9 C 95 H 20 138/74 95 Nasal Cannula 04/23/25 03:21 36.8 C 97 H 18 114/83 92 Nasal Cannula 04/22/25 23:29 36.9 C 95 H 16 123/74 Nasal Cannula O2 Flow Rate 04/23/25 07:18 3 04/23/25 03:21 2 04/22/25 23:29 2 Queries Orthopedic Spine Obesity: Yes
[2025-04-23] MEDS: HYDROmorphone INJ 0.5 MG/0.5 ML SYR IV PRN (10:18)
--- NOTE | 2025-04-23 11:17 | Hospitalist Progress Note ---
Date of Service April 23, 2025 Assessment & Plan (1) S/P spinal surgery: (2) Myelopathy concurrent with and due to spinal stenosis of thoracic region: Plan: Post op day# 1 S/P T11-L2 decompression and fusion by Dr Collette GREEN#300ml Pain management per ortho Wound management per ortho PT/OT as appropriate DVT prophylaxis per ortho, scds for now. Incentive spirometry Likely acute blood loss anemia: pre-op Hgb: 14, post op 11.5, likely perioperative blood loss and hemodilution. pt denies dizziness, c hest pain, sob. No indication for blood transfusion for now. monitor daily. (3) Type 2 diabetes mellitus: Plan: Insulin dependent A1c: 6.3 on 01/21/2025 Hold home pioglitazone and insulin. Glycemic pharmacy on board, appreciate glycemic management (4) Hypertension: Plan: c/w home lisinopril with holding parameters (5) Hyperlipidemia: Plan: Continue simvastatin (6) Depression: (7) Anxiety: Plan: Continue sertraline DVT Prophylaxis SCDs Thank you for this consultation. We will follow the patient with you during their hospital stay. You can reach a member of the [facility]/12 via [employer] Admission and Anticipated Discharge Date Admission Date: April 22, 2025 Subjective Patient was seen and examined at bedside. Patient was sitting up in bed, working with physical therapy. Patient reports operative site pain 11/18, reports improvement in his radicular symptoms. communicated with RN for pain medication. Otherwise patient denies other complaints, reports moving gas. Patient denies headache or dizziness or chest pain or shortness of breath. Physical Exam Physical Exam: GENERAL: Alert and oriented x3. NAD, on 2L NC O2 HEENT: No pallor, no icterus. Pupils equal, round and reactive to light. Oral mucosa moist. NECK: No JVD, no neck masses. HEART: S1 and S2 heard. Regular rate and rhythm. No murmur, no gallop. RESPIRATORY SYSTEM: Normal AP diameter. No accessory muscle use. No wheezing, no crackles. ABDOMEN: Soft, bowel sounds present, nontender, no distention. CENTRAL NERVOUS SYSTEM: No facial droop. Speech is clear. Obeys simple commands. Moves extremities. EXTREMITIES: No edema, no erythema seen. Low back dressing with no soakage. DINA drain with minimal serosanguineous collection noted. Distal neurovascular status wnl. Results & Data Results & Data Vital Signs (Past 12 Hours) Vital Signs Temp Pulse Resp BP BP Pulse Ox O2 Del Method 04/23/25 07:18 36.9 C 95 H 20 138/74 95 Nasal Cannula 04/23/25 03:21 36.8 C 97 H 18 114/83 92 Nasal Cannula 04/22/25 23:29 36.9 C 95 H 16 123/74 Nasal Cannula O2 Flow Rate 04/23/25 07:18 3 04/23/25 03:21 2 04/22/25 23:29 2
[2025-04-24 06:10] LABS: Hematocrit (blood only) 32.5 % (42.0-52.0); Hemoglobin 10.9 g/dL (14.0-18.0); Mean Corpuscular Hemoglobin 31.3 pg (25.0-34.0); Mean Corpuscular Volume 93.4 fL (80.0-100.0); Platelet Count 200 K/uL (130-400); RDW Standard Deviation 45.4 fL (36.4-46.3); Red Blood Count 3.48 M/uL (4.70-6.10); White Blood Count 16.68 K/ul (4.8-10.8)
[2025-04-24 06:35] LABS: Anion Gap 4.0 (3-11); Blood Urea Nitrogen 18.0 mg/dl (6-23); Calcium 9.3 mg/dl (8.6-10.3); Carbon Dioxide 30.0 mmol/L (21-32); Chloride 100.0 mmol/L (98-107); Creatinine Clr Calc Pharmacy 138.8 ml/min; Glucose 182.0 mg/dl (70-99(Fasting)); Magnesium 1.9 mg/dl (1.7-2.4); Potassium 4.5 mmol/L (3.5-5.1); Sodium 134.0 mmol/L (136-145)
--- NOTE | 2025-04-24 07:27 | Orthopedic Progress Note ---
Date of Service April 24, 2025 Assessment & Plan (1) Myelopathy concurrent with and due to spinal stenosis of thoracic region: Plan: Patient is stable at this point. Can have him progress with physical therapy. Will continue GI DVT prophylaxis and pain control measures. Will see how he does with physical therapy but the recommendations initially were to consider possible skilled rehab placement on discharge. We will see how he progresses over the next day or so. Admission and Anticipated Discharge Date Admission Date: April 22, 2025 Subjective Patient seen bedside in room 315. He states he is doing okay at this point. His right leg feels weak. He is relatively comfortable. He denies any nauseousness. He is tolerating p.o. He has been evaluated with physical therapy. He denies any other numbness, tingling, or paresthesias. Physical Exam Physical Exam: On exam he is alert and oriented. He answers questions appropriately. His abdomen soft nontender his calves are supple and nontender. His strength and sensation are grossly intact his gait was not observed. Visual shin are grossly intact. Cardiovascular exam reveals no gross abnormalities. Results & Data Vital Signs (Past 12 Hours) Vital Signs Temp Pulse Resp BP Pulse Ox O2 Del Method 04/23/25 23:03 36.7 C 90 20 108/62 90 Room Air
[2025-04-24] MEDS: LANTUS PER UNIT CHARGE SC ONE (09:08)
[2025-04-24] MEDS: ACETAMINOPHEN 500 MG TAB PO PRN (09:09)
--- NOTE | 2025-04-24 12:27 | Hospitalist Progress Note ---
Date of Service April 24, 2025 Assessment & Plan (1) S/P spinal surgery: (2) Myelopathy concurrent with and due to spinal stenosis of thoracic region: Plan: Post op day# 2 S/P T11-L2 decompression and fusion by Dr Collette GREEN#300ml Pain management per ortho Wound management per ortho PT/OT as appropriate DVT prophylaxis per ortho, scds for now. Incentive spirometry Likely acute blood loss anemia: pre-op Hgb: 14, post op 11.5, 10.9, likely perioperative blood loss and hemodilution. pt denies dizziness, c hest pain, sob. No indication for blood transfusion for now. monitor daily. (3) Type 2 diabetes mellitus: Plan: Insulin dependent A1c: 6.3 on 01/21/2025 Hold home pioglitazone and insulin. Glycemic pharmacy on board, appreciate glycemic management (4) Hypertension: Plan: c/w home lisinopril with holding parameters (5) Hyperlipidemia: Plan: Continue simvastatin (6) Depression: (7) Anxiety: Plan: Continue sertraline DVT Prophylaxis SCDs Thank you for this consultation. We will follow the patient with you during their hospital stay. You can reach a [facility]12 via [employer] Admission and Anticipated Discharge Date Admission Date: April 22, 2025 Subjective Patient was seen and examined at bedside. Patient was lying in bed, working with physical therapy. Patient reports operative site pain under control, reports improvement in his radicular symptoms. Patient denies headache or dizziness or chest pain or shortness of breath. Physical Exam Physical Exam: GENERAL: Alert and oriented x3. NAD, on RA HEENT: No pallor, no icterus. Pupils equal, round and reactive to light. Oral mucosa moist. NECK: No JVD, no neck masses. HEART: S1 and S2 heard. Regular rate and rhythm. No murmur, no gallop. RESPIRATORY SYSTEM: Normal AP diameter. No accessory muscle use. No wheezing, no crackles. ABDOMEN: Soft, bowel sounds present, nontender, no distention. CENTRAL NERVOUS SYSTEM: No facial droop. Speech is clear. Obeys simple commands. Moves extremities. EXTREMITIES: No edema, no erythema seen. Low back dressing with no soakage. DINA drain with minimal serosanguineous col lection noted. Distal neurovascular status wnl. Results & Data Results & Data Vital Signs (Past 12 Hours) Vital Signs Temp Pulse Resp BP Pulse Ox O2 Del Method 04/24/25 08:53 36.5 C 70 16 131/78 93 Room Air
[2025-04-24 23:47] VITALS: RESP 16; TEMP 98.2; O2SAT 95
[2025-04-25 06:22] LABS: Hematocrit (blood only) 31.2 % (42.0-52.0); Hemoglobin 10.9 g/dL (14.0-18.0); Mean Corpuscular Hemoglobin 31.6 pg (25.0-34.0); Mean Corpuscular Volume 90.4 fL (80.0-100.0); Platelet Count 248 K/uL (130-400); RDW Standard Deviation 42.8 fL (36.4-46.3); Red Blood Count 3.45 M/uL (4.70-6.10); White Blood Count 15.59 K/ul (4.8-10.8)
[2025-04-25 07:39] VITALS: BP 135/76; PULSE 52
--- NOTE | 2025-04-25 10:16 | Discharge Summary ---
Date of Service April 25, 2025 Admission HPI Per Admitting Provider this is a 54-year-old male who presents with thoracic spinal stenosis and myelopathy is here for decompression. Principal Diagnosis Thoracic spinal stenosis with myelopathy Discharge Data Allergies Allergy/AdvReac Type Severity Reaction Status Date / Time No Known Allergies Allergy Verified 04/12/25 12:25 Consultations 04/22/25 11:43 Consult Hospitalist Routine Procedures Performed Operation Date: 04/22/25 07:45 Actual Procedures p T11-L2 Decompression and Fusion(Not Applicable) - Tha Murdock DO Ordered Studies 04/22/25 07:45 [place] thoracic spine 2V Routine Hospital Course (1) Myelopathy concurrent with and due to spinal stenosis of thoracic region: Patient went thoracic decompression fusion tolerated so second orthopedic for postoperative. Postop he progressed appropriate. Marked improvement of his pain. DINA drain decreased appropriate. Tolerating physical therapy. Subsequent discharge home. Discharge orders and instructions from the chart for further review. Total Time Total Time Spent Total Time Spent (In Minutes): 20 minutes Discharge Plan Discharge Items Patient Disposition: Home - Home Health Services Reason For Visit: Myelopathy Concurrent With and Due to Spinal Steno Discharge Diagnosis: Thoracic myelopathy Activity: As commented below Non-emergency contact: Primary Care Provider Call non-emergency contact if: you have any medication questions Follow-up/Referrals: Cody Johansen MD [Primary Care Provider] - Diet: Regular Addtl Attending Provider Instructions: ACTIVITY RECOMMENDATIONS: SELF CARE INSTRUCTIONS AFTER THORACIC/LUMBAR FUSIONS 1. You may walk to your tolerance. It is good exercise for your legs and back. Expect some back and intermittent leg aches and pains. 2. You may perform "counter-top" level activities (make a sandwich, greg with a project, etc.). 3. No bending or lifting of more than 10 pounds or back twisting of any nature (roll like a log when turning in bed). 4. You may ride in a car for 20-30 minutes at a time. No driving until after your first visit with your doctor. 5. Frequent changes of position and restricting sitting to 30 minutes at a time will help limit the amount of back spasms and stiffness you may experience. 6. You may discontinue the use of ambulatory aids (cane, crutches, etc.) once your strength and confidence allow. 7. You may shipping and receiving supervisor the shower and let water strike your incision when you arrive home at least once daily. Do not take a tub bath, sit in a hot tub or go into a swimming pool until after your first recheck in the office. 8. You may resume previous diet. SPECIAL CARE INSTRUCTIONS: VERY IMPORTANT TO READ AND REVIEW A. Your surgical incision has been closed with a cosmetic suture under the skin that will dissolve in about 6 weeks. In 14 days, you can use a pair of clean scissors and cut the suture that is left outside of the skin at the ends of your incision. 1. The small skin tapes can be removed 7 days after surgery if they have not fallen off by that point. 2. You may keep the wound open to air as much as possible to promote healing after post-op day number 5 unless told otherwise by your doctor. 3. If you think the wound looks like it is becoming infected (redness or worsening drainage) and/or you are experiencing fever, chill or worsening back pain and muscle spasms, contact the office so that we may evaluate you as soon as possible. B. Complications are uncommon, but please contact us if you have any signs or symptoms of: 1. wound infection (fever higher than 102.5 degrees F, redness, separation of wound, drainage, or increasing pain from the incision) 2. blood clots in legs (pain, swelling, redness and warmth in legs) 3. urinary tract infection (fever higher than 102.5 degrees F, burning upon urination or increased frequency of urination) 4. nerve problems (inability to walk on your toes or heels, numbness, loss of bowel or bladder control) 5. any other symptoms that concern you C. Please call the office at if you have any concerns or questions about your operation or recovery. D. No smoking! Smoking drastically decreases the chance of a solid fusion. E. Do not take any anti-inflammatory medications (Indocin, Advil, Motrin, Aspirin, Naprosyn, etc.) as these may inhibit the chance of a solid fusion. Tylenol is okay to take for pain. MANAGING PAIN AFTER SPINAL SURGERY 1. Narcotic medication is intended for short-term use and will be provided for surgical pain. Surgical pain usually lasts for a period of 4-6 weeks. Narcotic medication includes Percocet, Vicodin, Darvocet, Tylenol #3 or Lortab. 2. Longer-term pain is more appropriately treated with non-narcotic medication such as Tylenol ES. 3. Muscle spasm is not appropriately treated with narcotics. Muscle relaxers such as Soma, Flexeril or Skelaxin can be used along with Tylenol ES. 4. Remember that we all live with some "aches and pains". This is not unusual or uncommon after an injury or as we get older. a. Back pain is expected and may include muscle spasms for 4 to 6 weeks after surgery. The pain should gradually improve. If the pain worsens for no apparent reason, please contact the office. b. Intermittent leg pain may also be experienced and should not be concerned about unless it worsens for no apparent reason. If so, please contact the office. 5. We will provide appropriate medication within the normal guidelines of their prescribed use. We will also be very cautious and aware of potential abuse and extended duration of patients' medication needs. a. Pain medications are for your comfort and to assist with sleep and rest so that the tissue can heal. They are not provided in order to return to normal activity and should not be used through the day. To do so or worsening pain at night can result from ongoing tissue damage and development of tolerance to the prescribed medicine. 6. Please allow 2-3 days to process refills. Prescriptions will not be mailed but must be picked up at the office. FOLLOW UP VISIT: Keep your scheduled follow-up appointment. Any questions, please call the office at . Pending Studies at Discharge: No Stand-Alone Forms: My [facility] CANDDi, Smoking Cessation Medications and DC Order Prescriptions: New tramadol 50 mg tablet 50 mg PO Q6H PRN (Reason: pain, moderate) Qty: 30 0RF oxycodone 5 mg tablet 5 mg PO Q6H PRN (Reason: pain) Qty: 30 0RF Continued simvastatin [Zocor] 10 mg Tablet 10 mg PO HS pioglitazone 45 mg Tablet 45 mg PO QAM lisinopril 10 mg Tablet 10 mg PO QAM sertraline 50 mg Tablet 50 mg PO HS insulin degludec [Tresiba FlexTouch U-100] 100 unit/mL (3 mL) Insulin Pen 30 - 50 unit SUBCUT HS cyanocobalamin (vitamin B-12) 2,500 mcg Tablet 5,000 mcg PO QAM famotidine [Pepcid] 20 mg Tablet 20 mg PO BID albuterol sulfate 90 mcg/actuation Hfa Aerosol Inhaler 2 puff INHALATION QID PRN (Reason: Shortness Of Breath) cholecalciferol (vitamin D3) [Vitamin D3] 125 mcg (5,000 unit) Tablet 125 mcg PO BID Patient Comments: only taking until 2 weeks after sx on 02/11/25 acetaminophen 500 mg Tablet 1,000 mg PO TID PRN (Reason: Pain) Discharge Orders: Discharge Order (Routine); Ordered 04/25/25 Ordered By: Tha Murdock Admission Data Admit Date/Time: 04/22/25 10:01 Attending Provider: Tha Murdock Admit Provider: Tha Murdock Primary Care Provider: Cody Johansen. Other Providers: Jennifer Lagunas Other Interventions: Discharge Summary Assessment (RN) Last Done: 04/25/25 10:09
--- NOTE | 2025-04-25 14:25 | Hospitalist Progress Note ---
Date of Service April 25, 2025 Assessment & Plan (1) S/P spinal surgery: (2) Myelopathy concurrent with and due to spinal stenosis of thoracic region: Plan: Post op day# 3 S/P T11-L2 decompression and fusion by Dr Collette GREEN#[phone] Pain management per ortho Wound management per ortho PT/OT as appropriate DVT prophylaxis per ortho, scds for now. Incentive spirometry Likely acute blood loss anemia: pre-op Hgb: 14, post op 11.5, 10.9, likely perioperative blood loss and hemodilution. pt denies dizziness, c hest pain, sob. No indication for blood transfusion for now. monitor daily. (3) Type 2 diabetes mellitus: Plan: Insulin dependent A1c: 6.3 on 01/21/2025 Hold home pioglitazone and insulin. Glycemic pharmacy on board, appreciate glycemic management (4) Hypertension: Plan: c/w home lisinopril with holding parameters (5) Hyperlipidemia: Plan: Continue simvastatin (6) Depression: (7) Anxiety: Plan: Continue sertraline DVT Prophylaxis SCDs Thank you for this consultation. We will follow the patient with you during their hospital stay. You can reach [facility]12 via [place] Admission and Anticipated Discharge Date Admission Date: April 22, 2025 Subjective Patient was seen and examined at bedside. Patient was lying in bed, using mobile phone. Patient reports operative site pain under control, reports improvement in his radicular symptoms. Patient denies headache or dizziness or chest pain or shortness of breath. Physical Exam Physical Exam: GENERAL: Alert and oriented x3. NAD, on RA HEENT: No pallor, no icterus. Pupils equal, round and reactive to light. Oral mucosa moist. NECK: No JVD, no neck masses. HEART: S1 and S2 heard. Regular rate and rhythm. No murmur, no gallop. RESPIRATORY SYSTEM: Normal AP diameter. No accessory muscle use. No wheezing, no crackles. ABDOMEN: Soft, bowel sounds present, nontender, no distention. CENTRAL NERVOUS SYSTEM: No facial droop. Speech is clear. Obeys simple commands. Moves extremities. EXTREMITIES: No edema, no erythema seen. Low back dressing with no soakage. DINA drain with minimal serosanguineous collection noted. Distal neurovascular status wnl. Results & Data Results & Data Vital Signs (Past 12 Hours) Vital Signs Temp Pulse Resp BP Pulse Ox O2 Del Method 04/25/25 07:25 36.8 C 52 L 16 135/76 95 Room Air
== END 2025-04-25 17:57 | disposition home health service (06) | DRG 427 ==
LOC: ASU 06:15 → 3E 10:01